=== PATIENT | female | born 1940 | race Caucasian/White ===

== ENCOUNTER → 2017-10-27 | Emergency (ER) | payer MEDICARE, MEDICAID ==
[~2017-10-27] VITALS: Ht 165.1 cm; Wt 106.8 kg
[~2017-10-27] MED LIST: ASPI-612 PO; ATOR20TA PO; FENO48TA15 PO; FURO-150 PO; GABA-338 PO; HYDR1TAB PO; LISI40TA4 PO; LOP25T PO; METF500T PO; SITA100T15 PO
[2017-10-27 14:41] VITALS: BP 143/75
== END | disposition home or self-care (01) ==
LOC: ER 14:28
DX: M25.561 Pain in right knee (principal); I25.10 Atherosclerotic heart disease of native coronary artery without angina pectoris; I10 Essential (primary) hypertension; J44.9 Chronic obstructive pulmonary disease, unspecified; I25.2 Old myocardial infarction; E11.9 Type 2 diabetes mellitus without complications; Z90.49 Acquired absence of other specified parts of digestive tract; Z88.5 Allergy status to narcotic agent; Z79.82 Long term (current) use of aspirin; Z79.84 Long term (current) use of oral hypoglycemic drugs; Z79.899 Other long term (current) drug therapy
CPT/HCPCS: 29505; 99283

== ENCOUNTER 2018-06-12 09:31 | Outpatient (CLI) | payer MEDICARE, MEDICAID | END 2018-06-12 23:59 | disposition home or self-care (01) | LOC: VAS 09:31 | PROVIDERS: ATTEND Family Medicine | DX: R60.0 Localized edema (principal); I10 Essential (primary) hypertension; E11.9 Type 2 diabetes mellitus without complications; I25.2 Old myocardial infarction; J44.9 Chronic obstructive pulmonary disease, unspecified; Z79.82 Long term (current) use of aspirin; Z87.891 Personal history of nicotine dependence; Z86.718 Personal history of other venous thrombosis and embolism | CPT/HCPCS: 93971 ==

== ENCOUNTER 2018-06-28 16:39 | Emergency (ER) | payer MEDICARE, MEDICAID ==
[~2018-06-28] VITALS: Ht 165.1 cm; Wt 107.0 kg
[2018-06-28] MEDS ORDERED: LIDOcaine 1.5% w/epinephrine 1:200,000 5ml ampul IJ ONE (17:00)
[2018-06-28 17:36] VITALS: BP 125/65
== END 2018-06-28 17:35 | disposition home or self-care (01) ==
LOC: ER 16:39
DX: S01.20XA Unspecified open wound of nose, initial encounter (principal); I25.10 Atherosclerotic heart disease of native coronary artery without angina pectoris; I10 Essential (primary) hypertension; I25.2 Old myocardial infarction; J44.9 Chronic obstructive pulmonary disease, unspecified; E11.9 Type 2 diabetes mellitus without complications; Z90.49 Acquired absence of other specified parts of digestive tract; Z87.891 Personal history of nicotine dependence; Z88.5 Allergy status to narcotic agent; Z79.82 Long term (current) use of aspirin; Z79.899 Other long term (current) drug therapy; X58.XXXA Exposure to other specified factors, initial encounter; Y93.89 Activity, other specified; Y92.89 Other specified places as the place of occurrence of the external cause; Y99.9 Unspecified external cause status
CPT/HCPCS: 12011; 99284; J3490

== ENCOUNTER 2019-06-30 11:06 | Inpatient (IN) | payer MEDICARE, MEDICAID ==
[~2019-06-30] VITALS: Ht 165.1 cm; Wt 125.0 kg
--- NOTE | 2019-06-30 11:33 | NUR ---
Markell arellano in EDM - 06/30/19 at 1135 by LUPE PATIENT AMBULATORY TO ER #11 WITH C/O LEFT WRIST PAIN AFTER FALLING ON WALKING PATH TODAY. PAIN AROUND ENTIRE WRIST BUT GOOD MOVEMENT AND SENSATION TO FINGERS.
[2019-06-30] MEDS ORDERED: normal saline 1000ML IV soln IVB ONE ×2 (12:10→13:20)
[2019-06-30 12:24] LABS: BASOPHILS % (AUTO) 0.3 % (0-1); EOSINOPHILS % (AUTO) 0.4 % (0-6); HEMATOCRIT 38.2 % (35.0-45.0); HEMOGLOBIN 12.3 g/dl (12.0-16.0); LYMPHOCYTES # (AUTO) 0.6 X10'3 (1.1-4.8); LYMPHOCYTES % (AUTO) 6.4 % (21-51); MEAN CORPUSCULAR HEMOGLOBIN 27.3 PG (27.0-31.0); MEAN CORPUSCULAR HGB CONC 32.1 g/dL (33.0-36.5); MEAN CORPUSCULAR VOLUME 85.1 FL (78-98); MEAN PLATELET VOLUME 8.7 FL (7.4-10.4); MONOCYTES # (AUTO) 0.8 X10'3 (0-0.9); MONOCYTES % (AUTO) 8.4 % (2-12); NEUTROPHILS # (AUTO) 7.7 X10'3 (1.8-7.7); NEUTROPHILS % (AUTO) 84.5 % (42-75); PLATELET COUNT 144 X10'3 (140-440); RED BLOOD COUNT 4.49 X10'6 (4.20-5.60); RED CELL DISTRIBUTION WIDTH 22.1 % (11.5-14.5); WHITE BLOOD COUNT 9.1 X10'3 (4.5-11.0)
[2019-06-30 12:36] LABS: ALANINE AMINOTRANSFERASE 20 U/L (12-78); ALBUMIN 3.1 G/DL (3.4-5.0); ALBUMIN/GLOBULIN RATIO 0.6 (1.1-1.5); ALKALINE PHOSPHATASE 67 IU/L (46-116); ANION GAP 11 (8-16); ASPARTATE AMINO TRANSFERASE 23 U/L (10-37); BILIRUBIN,TOTAL 0.9 MG/DL (0.1-1.0); BLOOD UREA NITROGEN 37 MG/DL (7-18); BUN/CREATININE RATIO 19.2 (6.6-38.0); CALCIUM 8.7 MG/DL (8.5-10.1); CHLORIDE 99 MMOL/L (99-107); CREATININE 1.93 MG/DL (0.40-0.90); GLUCOSE 301 MG/DL (70-104); LIPASE 114 U/L (73-393); POTASSIUM 3.7 MMOL/L (3.5-5.1); SODIUM 138 MMOL/L (135-145); TOTAL CARBON DIOXIDE 28.5 MMOL/L (24-32); TOTAL PROTEIN 8.1 G/DL (6.4-8.2); eGFR 25 ML/MIN
[2019-06-30 12:50] LABS: CLARITY,URINE SLIGHTLY CLOUDY (Clear); GLUCOSE, URINE NEGATIVE (Neg); KETONES,URINE TRACE mg/dl (Neg); LEUKOCYTE ESTERASE ,URINE NEGATIVE (Neg); NITRITES, URINE NEGATIVE (Neg); OCCULT BLOOD,URINE NEGATIVE (Neg); PH,URINE 5.5 (4.8-8.0); PROTEIN,URINE 100 mg/dl (Neg)
[2019-06-30 12:53] LABS: COLOR,URINE DARK YELLOW (Yellow); UA COLLECTION TYPE STRAIGHT CATH
[2019-06-30 12:56] LABS: SQUAMOUS EPITHELIAL CELL,UR FEW /LPF (FEW)
[2019-06-30 12:58] LABS: BACTERIA,URINE FEW /HPF (Neg); RBC,URINE 0-2 /HPF (0-2); WBC,URINE 0-4 /HPF (0-4)
[2019-06-30 13:07] LABS: AMORPHOUS URATES 1+
[2019-06-30 13:08] LABS: TRANSITIONAL EPI CELLS,URINE FEW /HPF
--- NOTE | 2019-06-30 14:12 | NUR ---
[facility]EL [facility]GO INITIATED FOR TRANSPORT. ETA 1600
--- NOTE | 2019-06-30 14:59 | NUR ---
pt failed gait test. pt unable to stand with 2 person assit
--- NOTE | 2019-06-30 15:11 | NUR ---
[facility]GO HAS BEEN CANCELLED. HOSPITALIST HAS BEEN PAGED
--- NOTE | 2019-06-30 15:12 | NUR ---
case management called regarding dc
[2019-06-30] MEDS ORDERED: acetaminophen 325mg tablet PO PRN ×2 (15:40)
[2019-06-30] MEDS ORDERED: diphenhydrAMINE 25mg capsule PO PRN (15:40)
[2019-06-30] MEDS ORDERED: magnesium 4gm in 100ml NS 100 ML IV PRN (15:40)
[2019-06-30] MEDS ORDERED: mag hydrox/Alum hydrox/simeth 30ml oral suspension PO PRN (15:40)
[2019-06-30] MEDS: K and/or MAG REPLACEMENT MC SCH (15:40)
[2019-06-30] MEDS ORDERED: potassium Cl 20 mEq SR tablet PO PRN (15:40)
[2019-06-30] MEDS ORDERED: magnesium 2GM in 50ml NS 50 ML IV PRN (15:40)
[2019-06-30] MEDS ORDERED: morphine 2 MG/ML inj. syringe IV PRN ×2 (15:40)
[2019-06-30] MEDS ORDERED: HYDROcodone/acetaminophen 10/325mg tab PO PRN (15:40)
[2019-06-30] MEDS ORDERED: MESSAGE TO PHARMACY PO ONE (15:40)
[2019-06-30] MEDS ORDERED: dextrose ORAL solution 15 GM/59 ML bottle PO PRN ×2 (15:40)
[2019-06-30] MEDS ORDERED: dextrose 50%-water 50ml dispensing syringe IV PRN ×2 (15:40)
[2019-06-30] MEDS ORDERED: ondansetron/PF 4mg/2ml inj IV PRN (15:40)
[2019-06-30] MEDS ORDERED: HYDROcodone/acetaminophen 5mg/325mg tablet PO PRN (15:40)
[2019-06-30] MEDS ORDERED: potassium CL 10mEq/100ml bag 100 ML IV PRN ×2 (15:40)
[2019-06-30] MEDS ORDERED: glucagon, human recombinant 1mg kit SUBCUT PRN (15:40)
[2019-06-30] MEDS ORDERED: magnesium hydroxide 30ml (MOM) UD suspension PO PRN (15:40)
[2019-06-30] MEDS ORDERED: magnesium Cl slow-release 64mg tablet PO PRN (15:40)
[2019-06-30] MEDS ORDERED: PREG50CA PO (16:21)
[2019-06-30] MEDS ORDERED: FENO160T5 PO (16:21)
[2019-06-30] MEDS ORDERED: NAPR-56 PO (16:21)
[2019-06-30] MEDS ORDERED: ALBU18HF2 INH (16:21)
[2019-06-30] MEDS ORDERED: GLIP5TAB26 PO (16:21)
[2019-06-30 16:24] LABS: ANISOCYTOSIS 3+; PLATELET ESTIMATE NORMAL
[2019-06-30 16:25] LABS: POLYCHROMASIA FEW
[2019-06-30] MEDS ORDERED: LOSA1TAB39 PO (16:26)
[2019-06-30] MEDS: normal saline 1000ml 1,000 ML IV SCH (16:45)
[2019-06-30 18:45] LABS: COLOR,URINE YELLOW (Yellow); GLUCOSE, URINE 100 mg/dl (Neg); KETONES,URINE NEGATIVE (Neg); LEUKOCYTE ESTERASE ,URINE TRACE (Neg); NITRITES, URINE NEGATIVE (Neg); OCCULT BLOOD,URINE SMALL (Neg); PH,URINE 5.5 (4.8-8.0); PROTEIN,URINE TRACE mg/dl (Neg)
[2019-06-30 18:48] LABS: CLARITY,URINE SLIGHTLY CLOUDY (Clear); UA COLLECTION TYPE OTHER
[2019-06-30 18:58] LABS: RBC,URINE 0-2 /HPF (0-2)
[2019-06-30 18:59] LABS: BACTERIA,URINE FEW /HPF (Neg); HYALINE CASTS 0-3 /LPF (NEGATIVE); SQUAMOUS EPITHELIAL CELL,UR FEW /LPF (FEW)
[2019-06-30] MEDS ORDERED: methylPREDNISolone sod succ 125mg/2ml vial IV ONE (19:40)
[2019-06-30] MEDS: methylPREDNISolone sod succ 125mg/2ml vial IV SCH (20:00)
[2019-06-30] MEDS: heparin, porcine 5000 units/ml vial SQ SCH (20:42)
[2019-06-30] MEDS: atorvastatin 20mg tablet PO SCH (20:42)
[2019-06-30] MEDS ORDERED: temazepam 15mg capsule PO PRN (21:00)
--- NOTE | 2019-06-30 21:05 | NUR ---
2-person assist for pericare; soft stool. pt does not appear to recognize when/if she has urinated.
--- NOTE | 2019-06-30 21:20 | NUR ---
Rec'd report from JACINTO Moser in the ER.
--- NOTE | 2019-06-30 21:35 | NUR ---
Patient arrived from ER on [facility] and was transferred to hospital bed with slide board. She is not very mobile and complains of leg pain when moved. She is A&O x3, very hard of hearing. I will continue to monitor.
[2019-06-30 21:50] VITALS: BP 161/60
[2019-06-30] MEDS: aspirin 81mg tablet.DR PO SCH (22:01)
[2019-06-30] MEDS: pregabalin 25mg capsule PO SCH (22:02)
[2019-06-30] MEDS: insulin glargine (Lantus) pen - multi-dose SQ SCH (22:14)
[2019-06-30] MEDS: ipratropium/albuterol 3ml nebule NEB SCH (23:31)
[2019-07-01] MEDS: normal saline 1000ml 1,000 ML IV SCH ×3 (01:38→12:41)
[2019-07-01] MEDS: methylPREDNISolone sod succ 125mg/2ml vial IV SCH ×4 (02:06→20:32)
[2019-07-01] MEDS: ipratropium/albuterol 3ml nebule NEB SCH ×5 (02:43→23:31)
[2019-07-01 06:00] VITALS: BP 154/49
[2019-07-01 06:16] LABS: BASOPHILS % (AUTO) 0.1 % (0-1); EOSINOPHILS % (AUTO) 0.1 % (0-6); HEMATOCRIT 35.7 % (35.0-45.0); HEMOGLOBIN 11.5 g/dl (12.0-16.0); LYMPHOCYTES # (AUTO) 0.2 X10'3 (1.1-4.8); LYMPHOCYTES % (AUTO) 3.6 % (21-51); MEAN CORPUSCULAR HEMOGLOBIN 27.6 PG (27.0-31.0); MEAN CORPUSCULAR HGB CONC 32.3 g/dL (33.0-36.5); MEAN CORPUSCULAR VOLUME 85.4 FL (78-98); MONOCYTES # (AUTO) 0.1 X10'3 (0-0.9); MONOCYTES % (AUTO) 2.2 % (2-12); NEUTROPHILS # (AUTO) 5.7 X10'3 (1.8-7.7); PLATELET COUNT 115 X10'3 (140-440); RED BLOOD COUNT 4.18 X10'6 (4.20-5.60); RED CELL DISTRIBUTION WIDTH 22.1 % (11.5-14.5)
--- NOTE | 2019-07-01 06:29 | NUR ---
Problems reprioritized. Patient report given, questions answered & plan of care reviewed with JACINTO Romo.
[2019-07-01 06:30] LABS: ALANINE AMINOTRANSFERASE 21 U/L (12-78); ALBUMIN 2.6 G/DL (3.4-5.0); ALBUMIN/GLOBULIN RATIO 0.5 (1.1-1.5); ALKALINE PHOSPHATASE 62 IU/L (46-116); ANION GAP 12 (8-16); ASPARTATE AMINO TRANSFERASE 19 U/L (10-37); BILIRUBIN,TOTAL 0.6 MG/DL (0.1-1.0); BLOOD UREA NITROGEN 33 MG/DL (7-18); BUN/CREATININE RATIO 25.2 (6.6-38.0); CALCIUM 8.7 MG/DL (8.5-10.1); CHLORIDE 103 MMOL/L (99-107); CREATININE 1.31 MG/DL (0.40-0.90); GLUCOSE 287 MG/DL (70-104); MAGNESIUM 1.7 MG/DL (1.5-2.4); PHOSPHORUS 2.9 MG/DL (2.3-4.5); POTASSIUM 3.3 MMOL/L (3.5-5.1); SODIUM 142 MMOL/L (135-145); TOTAL CARBON DIOXIDE 26.8 MMOL/L (24-32); TOTAL PROTEIN 7.6 G/DL (6.4-8.2); eGFR 39 ML/MIN
[2019-07-01] MEDS: K and/or MAG REPLACEMENT MC SCH (08:00)
[2019-07-01] MEDS: insulin Lispro (HumaLOG) vial - multi-dose SQ SCH ×4 (08:56→20:47)
[2019-07-01 09:00] VITALS: BP 149/60
[2019-07-01] MEDS: losartan 50mg tablet PO SCH (09:00)
[2019-07-01] MEDS: HYDROchlorothiazide 25mg tablet PO SCH (09:00)
[2019-07-01] MEDS: furosemide 20MG tablet PO SCH (09:00)
[2019-07-01 09:01] LABS: PLATELET ESTIMATE DECREASED
[2019-07-01] MEDS: pregabalin 25mg capsule PO SCH ×3 (09:01→20:34)
[2019-07-01 09:02] LABS: ANISOCYTOSIS 3+; ELLIPTOCYTES 1+; POLYCHROMASIA FEW; SCHISTOCYTES FEW
[2019-07-01] MEDS: potassium Cl 20 mEq SR tablet PO PRN ×3 (09:02→18:51)
[2019-07-01] MEDS: fenofibrate 145mg tablet PO SCH (09:02)
[2019-07-01] MEDS: heparin, porcine 5000 units/ml vial SQ SCH ×2 (09:06→20:33)
[2019-07-01 10:00] VITALS: BP 132/51
[2019-07-01] MEDS ORDERED: FLU VACC QS2019-20(6MOS UP)/PF 60 MCG/0.5 ML SYRINGE IMVAC ONE (10:00)
--- NOTE | 2019-07-01 11:31 | NUR ---
Student documentation: I have reviewed all interventions, assessments performed and [facility] Student Medication Administration: For this medication-pass time frame, all medication were reviewed, dispensed, administered and documented per hospital policy [facility].
--- NOTE | 2019-07-01 12:31 | NUR ---
PRESSURE ULCER EDUCATION: DEFINITION: A pressure ulcer is an area of skin that breaks down when you stay in one position too long. The constant pressure against the skin reduces the blood flow to that area and the affected tissue dies. CAUSES: "Being bedridden or in a wheelchair "Fragile skin "Having a chronic condition, such as diabetes or vascular disease "Inability to move certain parts of your body without assistance "Older age "Incontinence of urine or stool SYMPTOMS: "A reddened area that DOES NOT turn white when pressed on - this can be the beginning of a pressure ulcer "A blister, deep sore or a crater - these can be advanced pressure ulcers FIRST AID: "Relieve the pressure on this area "Keep the area clean and dry "Call your primary doctor if you see any of the above symptoms "DO NOT massage the area "DO NOT use a donut shaped or ring shaped pillow- these actually interfere with the blood flow and cause complications PREVENTION: "Check for pressure ulcers everyday "Change position at least every two hours to relieve pressure "Use items that help relieve pressure- pillows, sheepskin, foam padding, and powders. "Keep skin clean and dry "Eat healthy well balanced meals "Exercise daily IF YOU SEE ANY OF THESE SYMPTOMS WHILE IN THE HOSPITAL - TELL YOUR NURSE IMMEDIATELY. IF YOU SEE ANY OF THESE SYMPTOMS WHILE AT HOME OR HAVE ANY QUESTIONS OR CONCERNS ABOUT PRESSURE ULCERS - CALL YOUR PRIMARY DOCTOR IMMEDIATELY. Addendum: 07/01/19 at 1232 by Ingris Mccabe RN Amended: Links added.
--- NOTE | 2019-07-01 16:24 | NUR ---
Retrieved Flu vaccine from pharmacy for pt. Vaccine was due at 10:00. Vaccine did not scan, indicated "med not on patient's profile". Called pharmacy, spoke with wet process technician who advised it was scanning on their end and there was nothing they could do. Pharmacy stated to try another scanner. I advised pharmacy it was not a scanner issue but a labeling issue. Pharmacy explained I could talk to my director/charge but they (pharmacy) couldn't do anything about it. Spoke with charge. Administered flu vaccine after explaining pharmacy issue.
[2019-07-01 18:00] VITALS: BP 153/48
--- NOTE | 2019-07-01 18:19 | NUR ---
Problems reprioritized. Patient report given, questions answered & plan of care reviewed with
--- NOTE | 2019-07-01 18:29 | NUR ---
Patient in room ORTHO 4022. I have received report from JACINTO MCBRIDE and had the opportunity to ask questions and assume patient care.
[2019-07-01] MEDS: aspirin 81mg tablet.DR PO SCH (20:32)
[2019-07-01] MEDS: atorvastatin 20mg tablet PO SCH (20:33)
[2019-07-01] MEDS: insulin glargine (Lantus) pen - multi-dose SQ SCH (20:48)
[2019-07-01 22:00] VITALS: BP 106/46
[2019-07-02] MEDS: methylPREDNISolone sod succ 125mg/2ml vial IV SCH ×4 (01:19→19:51)
[2019-07-02] MEDS: ipratropium/albuterol 3ml nebule NEB SCH ×6 (03:00→23:29)
[2019-07-02 05:57] LABS: BASOPHILS % (AUTO) 0.1 % (0-1); EOSINOPHILS % (AUTO) 0 % (0-6); HEMATOCRIT 33.1 % (35.0-45.0); HEMOGLOBIN 10.9 g/dl (12.0-16.0); LYMPHOCYTES # (AUTO) 0.2 X10'3 (1.1-4.8); LYMPHOCYTES % (AUTO) 3.7 % (21-51); MEAN CORPUSCULAR HEMOGLOBIN 27.5 PG (27.0-31.0); MEAN CORPUSCULAR HGB CONC 32.8 g/dL (33.0-36.5); MEAN CORPUSCULAR VOLUME 83.9 FL (78-98); MONOCYTES # (AUTO) 0.2 X10'3 (0-0.9); NEUTROPHILS % (AUTO) 93.2 % (42-75); PLATELET COUNT 135 X10'3 (140-440); RED BLOOD COUNT 3.95 X10'6 (4.20-5.60); RED CELL DISTRIBUTION WIDTH 21.8 % (11.5-14.5); WHITE BLOOD COUNT 6.4 X10'3 (4.5-11.0)
[2019-07-02 06:00] VITALS: BP 149/63
[2019-07-02 06:04] LABS: ALANINE AMINOTRANSFERASE 30 U/L (12-78); ALBUMIN 2.4 G/DL (3.4-5.0); ALBUMIN/GLOBULIN RATIO 0.5 (1.1-1.5); ALKALINE PHOSPHATASE 63 IU/L (46-116); ANION GAP 6 (8-16); ASPARTATE AMINO TRANSFERASE 34 U/L (10-37); BILIRUBIN,TOTAL 0.4 MG/DL (0.1-1.0); BLOOD UREA NITROGEN 38 MG/DL (7-18); BUN/CREATININE RATIO 31.9 (6.6-38.0); CALCIUM 8.8 MG/DL (8.5-10.1); CHLORIDE 104 MMOL/L (99-107); CREATININE 1.19 MG/DL (0.40-0.90); GLUCOSE 261 MG/DL (70-104); MAGNESIUM 1.8 MG/DL (1.5-2.4); PHOSPHORUS 2.5 MG/DL (2.3-4.5); POTASSIUM 3.5 MMOL/L (3.5-5.1); SODIUM 140 MMOL/L (135-145); TOTAL CARBON DIOXIDE 29.8 MMOL/L (24-32); TOTAL PROTEIN 7.1 G/DL (6.4-8.2); eGFR 44 ML/MIN
--- NOTE | 2019-07-02 06:15 | NUR ---
Patient in room ORTHO 4022. I have received report from Bonnie and had the opportunity to ask questions and assume patient care.
--- NOTE | 2019-07-02 06:21 | NUR ---
Problems reprioritized. Patient report given, questions answered & plan of care reviewed with JACINTO MCBRIDE.
[2019-07-02 07:46] LABS: ANISOCYTOSIS 3+; ELLIPTOCYTES 1+; PLATELET ESTIMATE DECREASED; TEAR DROP CELLS FEW
[2019-07-02 07:47] LABS: POLYCHROMASIA FEW
[2019-07-02] MEDS: K and/or MAG REPLACEMENT MC SCH (08:00)
[2019-07-02] MEDS: insulin Lispro (HumaLOG) vial - multi-dose SQ SCH ×4 (08:26→21:05)
[2019-07-02] MEDS: heparin, porcine 5000 units/ml vial SQ SCH ×2 (08:31→19:51)
[2019-07-02] MEDS: losartan 50mg tablet PO SCH (08:36)
[2019-07-02] MEDS: furosemide 20MG tablet PO SCH (08:36)
[2019-07-02] MEDS: HYDROchlorothiazide 25mg tablet PO SCH (08:36)
[2019-07-02] MEDS: pregabalin 25mg capsule PO SCH ×3 (08:37→20:58)
[2019-07-02] MEDS: fenofibrate 145mg tablet PO SCH (08:37)
--- NOTE | 2019-07-02 09:40 | NUR ---
Problems reprioritized. Patient report given, questions answered & plan of care reviewed with Deyanira Schwarz
--- NOTE | 2019-07-02 09:45 | NUR ---
Patient in room ORTHO 4022. I have received report from JACINTO Saravia and had the opportunity to ask questions and assume patient care.
[2019-07-02 10:10] VITALS: BP 134/60
--- NOTE | 2019-07-02 10:58 | NUR ---
Student documentation: I have reviewed all interventions, assessments performed and [facility] Student Medication Administration: For this medication-pass time frame, all medication were reviewed, dispensed, administered and documented per hospital policy [facility].
[2019-07-02 18:00] VITALS: BP 142/55
--- NOTE | 2019-07-02 18:00 | NUR ---
Received report from Deyanira CASEY. assumed care of patient
[2019-07-02] MEDS: CefTRIAXone/D5W-Rocephin 1gm 50 ML IV SCH (19:51)
[2019-07-02] MEDS: atorvastatin 20mg tablet PO SCH (20:58)
[2019-07-02] MEDS: aspirin 81mg tablet.DR PO SCH (20:58)
[2019-07-02] MEDS: insulin glargine (Lantus) pen - multi-dose SQ SCH (21:04)
[2019-07-02 22:00] VITALS: BP 159/58
[2019-07-03] MEDS: methylPREDNISolone sod succ 125mg/2ml vial IV SCH ×3 (02:13→13:20)
[2019-07-03] MEDS: ipratropium/albuterol 3ml nebule NEB SCH ×4 (03:00→15:00)
[2019-07-03 06:00] VITALS: BP 170/73
[2019-07-03 06:17] LABS: BASOPHILS % (AUTO) 0.1 % (0-1); EOSINOPHILS % (AUTO) 0 % (0-6); HEMATOCRIT 34.2 % (35.0-45.0); HEMOGLOBIN 11.1 g/dl (12.0-16.0); LYMPHOCYTES # (AUTO) 0.2 X10'3 (1.1-4.8); LYMPHOCYTES % (AUTO) 2.9 % (21-51); MEAN CORPUSCULAR HEMOGLOBIN 27.3 PG (27.0-31.0); MEAN CORPUSCULAR HGB CONC 32.4 g/dL (33.0-36.5); MEAN CORPUSCULAR VOLUME 84.2 FL (78-98); MEAN PLATELET VOLUME 9.2 FL (7.4-10.4); MONOCYTES # (AUTO) 0.3 X10'3 (0-0.9); NEUTROPHILS # (AUTO) 4.7 X10'3 (1.8-7.7); PLATELET COUNT 140 X10'3 (140-440); RED BLOOD COUNT 4.06 X10'6 (4.20-5.60); RED CELL DISTRIBUTION WIDTH 22.1 % (11.5-14.5); WHITE BLOOD COUNT 5.2 X10'3 (4.5-11.0)
--- NOTE | 2019-07-03 06:21 | NUR ---
Gave report to Leola CASEY
[2019-07-03 06:26] LABS: ALANINE AMINOTRANSFERASE 45 U/L (12-78); ALBUMIN 2.4 G/DL (3.4-5.0); ALBUMIN/GLOBULIN RATIO 0.5 (1.1-1.5); ALKALINE PHOSPHATASE 62 IU/L (46-116); ANION GAP 7 (8-16); ASPARTATE AMINO TRANSFERASE 36 U/L (10-37); BILIRUBIN,TOTAL 0.3 MG/DL (0.1-1.0); BLOOD UREA NITROGEN 47 MG/DL (7-18); BUN/CREATININE RATIO 36.4 (6.6-38.0); CALCIUM 8.9 MG/DL (8.5-10.1); CHLORIDE 103 MMOL/L (99-107); CHOL/HDL RATIO 4.4 (0.00-4.99); CHOLESTEROL 101 MG/DL (0-200); CREATININE 1.29 MG/DL (0.40-0.90); GLUCOSE 217 MG/DL (70-104); HDL CHOLESTEROL 23 MG/DL (35-60); LDL CHOLESTEROL 54 MG/DL (50-100); MAGNESIUM 1.8 MG/DL (1.5-2.4); PHOSPHORUS 3.4 MG/DL (2.3-4.5); POTASSIUM 3.4 MMOL/L (3.5-5.1); SODIUM 142 MMOL/L (135-145); TOTAL CARBON DIOXIDE 32.1 MMOL/L (24-32); TRIGLYCERIDES 172 MG/DL (20-135); eGFR 40 ML/MIN
[2019-07-03 06:41] LABS: ANISOCYTOSIS 3+; MICROCYTOSIS 1+; PLATELET ESTIMATE DECREASED
[2019-07-03 06:42] LABS: POIKILOCYTOSIS 1+
--- NOTE | 2019-07-03 07:03 | NUR ---
Patient in room ORTHO 4022. I have received report from [facility] and had the opportunity to ask questions and assume patient care.
[2019-07-03] MEDS: K and/or MAG REPLACEMENT MC SCH (08:00)
[2019-07-03] MEDS: CefTRIAXone/D5W-Rocephin 1gm 50 ML IV SCH (08:38)
[2019-07-03] MEDS: potassium Cl 20 mEq SR tablet PO PRN (08:39)
[2019-07-03] MEDS: HYDROchlorothiazide 25mg tablet PO SCH (08:40)
[2019-07-03] MEDS: pregabalin 25mg capsule PO SCH ×2 (08:40→13:20)
[2019-07-03] MEDS: losartan 50mg tablet PO SCH (08:41)
[2019-07-03] MEDS: heparin, porcine 5000 units/ml vial SQ SCH (08:42)
[2019-07-03] MEDS: furosemide 20MG tablet PO SCH (08:42)
[2019-07-03] MEDS: fenofibrate 145mg tablet PO SCH (08:42)
[2019-07-03] MEDS: insulin Lispro (HumaLOG) vial - multi-dose SQ SCH ×2 (09:17→13:24)
[2019-07-03 10:20] VITALS: BP 165/76
--- NOTE | 2019-07-03 15:49 | NUR ---
called report to Annelise at [facility]. 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 Sonja Moya made aware.
--- NOTE | 2019-07-03 16:21 | NUR ---
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 All belongings sent with pt. Discharged to [facility].
== END 2019-07-03 16:36 | DRG 682 ==
LOC: ER 11:07 → ED HOLD 15:38 → ORTHO 4S 21:33
PROVIDERS: ADMIT Family Medicine; ATTEND Family Medicine
DX: N17.9 Acute kidney failure, unspecified (principal); I50.33 Acute on chronic diastolic (congestive) heart failure; N39.0 Urinary tract infection, site not specified; J44.1 Chronic obstructive pulmonary disease with (acute) exacerbation; J44.0 Chronic obstructive pulmonary disease with (acute) lower respiratory infection; E86.0 Dehydration; J20.9 Acute bronchitis, unspecified; M54.5 Low back pain; B96.20 Unspecified Escherichia coli [E. coli] as the cause of diseases classified elsewhere; I11.0 Hypertensive heart disease with heart failure; E11.40 Type 2 diabetes mellitus with diabetic neuropathy, unspecified; E78.1 Pure hyperglyceridemia; Z60.2 Problems related to living alone; E78.5 Hyperlipidemia, unspecified; G89.29 Other chronic pain; I25.10 Atherosclerotic heart disease of native coronary artery without angina pectoris; M47.9 Spondylosis, unspecified; Z66 Do not resuscitate; Z82.0 Family history of epilepsy and other diseases of the nervous system; Z87.891 Personal history of nicotine dependence; I25.2 Old myocardial infarction; Z99.81 Dependence on supplemental oxygen; Z23 Encounter for immunization; Z88.5 Allergy status to narcotic agent; Z90.49 Acquired absence of other specified parts of digestive tract; Z81.1 Family history of alcohol abuse and dependence
CPT/HCPCS: 36415; 71045; 72131; 73502; 80053; 80061; 81001; 82948; 83036; 83690; 83735; 84100; 85025; 87077; 87081; 87088; 87186; 93306; 94640; 94760; 96360; 96361; 97110; 97116; 97161; 97530; 99285; G0378; J0696; J1644; J1815; J2405; J2930; J7030

== ENCOUNTER 2019-08-22 18:47 | Inpatient (IN) | payer MEDICARE, MEDICAID ==
[~2019-08-22] VITALS: Ht 170.2 cm; Wt 106.8 kg
[~2019-08-22 18:47] MED LIST changes: +ALBU18HF2 INH; +FENO160T5 PO; -FENO48TA15 PO; -GABA-338 PO; +GLIP5TAB26 PO; -HYDR1TAB PO; -LISI40TA4 PO; -LOP25T PO; +LOSA1TAB39 PO; +NAPR-56 PO; +PREG50CA PO; -SITA100T15 PO
[2019-08-22] MEDS ORDERED: ESCI20TA38 PO (19:22)
[2019-08-22] MEDS ORDERED: DULO60CA65 PO (19:22)
[2019-08-22 21:13] LABS: BASOPHILS % (AUTO) 0.4 % (0-1); EOSINOPHILS # (AUTO) 0.4 X10'3 (0-0.9); EOSINOPHILS % (AUTO) 6.3 % (0-6); HEMATOCRIT 31.4 % (35.0-45.0); HEMOGLOBIN 10.3 g/dl (12.0-16.0); LYMPHOCYTES # (AUTO) 0.8 X10'3 (1.1-4.8); LYMPHOCYTES % (AUTO) 13.6 % (21-51); MEAN CORPUSCULAR HEMOGLOBIN 29.3 PG (27.0-31.0); MEAN CORPUSCULAR HGB CONC 32.8 g/dL (33.0-36.5); MEAN CORPUSCULAR VOLUME 89.5 FL (78-98); MEAN PLATELET VOLUME 8.7 FL (7.4-10.4); MONOCYTES # (AUTO) 0.6 X10'3 (0-0.9); MONOCYTES % (AUTO) 9.4 % (2-12); NEUTROPHILS # (AUTO) 4.2 X10'3 (1.8-7.7); NEUTROPHILS % (AUTO) 70.3 % (42-75); PLATELET COUNT 183 X10'3 (140-440); RED BLOOD COUNT 3.51 X10'6 (4.20-5.60); RED CELL DISTRIBUTION WIDTH 20.4 % (11.5-14.5)
[2019-08-22 21:21] LABS: PARTIAL THROMBOPLASTIN TIME 26 SECONDS (22-32)
[2019-08-22 21:25] LABS: ALANINE AMINOTRANSFERASE 86 U/L (12-78); ALBUMIN 3.2 G/DL (3.4-5.0); ALBUMIN/GLOBULIN RATIO 0.8 (1.1-1.5); ALKALINE PHOSPHATASE 64 IU/L (46-116); ANION GAP 11 (8-16); ASPARTATE AMINO TRANSFERASE 170 U/L (10-37); BLOOD UREA NITROGEN 73 MG/DL (7-18); CALCIUM 9.2 MG/DL (8.5-10.1); CHLORIDE 100 MMOL/L (99-107); CREATININE 4.55 MG/DL (0.40-0.90); GLUCOSE 157 MG/DL (70-104); POTASSIUM 5.4 MMOL/L (3.5-5.1); SODIUM 140 MMOL/L (135-145); eGFR 9 ML/MIN
[2019-08-22 21:39] LABS: CLARITY,URINE CLOUDY (Clear); COLOR,URINE YELLOW (Yellow); GLUCOSE, URINE NEGATIVE (Neg); KETONES,URINE NEGATIVE (Neg); LEUKOCYTE ESTERASE ,URINE MODERATE (Neg); NITRITES, URINE NEGATIVE (Neg); OCCULT BLOOD,URINE LARGE (Neg); PH,URINE 5.5 (4.8-8.0); PROTEIN,URINE 100 mg/dl (Neg); UROBILINOGEN,URINE 0.2 E.U/dL (0.2-1.0)
[2019-08-22 21:44] LABS: UA COLLECTION TYPE FOLEY CATH
[2019-08-22 21:45] LABS: BACTERIA,URINE 1+ /HPF (Neg); SQUAMOUS EPITHELIAL CELL,UR FEW /LPF (FEW); WBC CLUMPS,URINE MODERATE /HPF (NEGATIVE); WBC,URINE TNTC /HPF (0-4)
[2019-08-22] MEDS ORDERED: normal saline 1000ML IV soln IVB ONE (21:45)
[2019-08-22] MEDS ORDERED: magnesium Cl slow-release 64mg tablet PO PRN (22:05)
[2019-08-22] MEDS ORDERED: dextrose 50%-water 50ml dispensing syringe IV ONE (22:05)
[2019-08-22] MEDS ORDERED: insulin regular, human 10 units/0.1 ml syringe IV ONE (22:05)
[2019-08-22] MEDS ORDERED: magnesium hydroxide 30ml (MOM) UD suspension PO PRN (22:05)
[2019-08-22] MEDS ORDERED: magnesium 4gm in 100ml NS 100 ML IV PRN (22:05)
[2019-08-22] MEDS ORDERED: mag hydrox/Alum hydrox/simeth 30ml oral suspension PO PRN (22:05)
[2019-08-22] MEDS ORDERED: potassium Cl 20 mEq SR tablet PO PRN ×2 (22:05)
[2019-08-22] MEDS ORDERED: potassium CL 10mEq/100ml bag 100 ML IV PRN ×2 (22:05)
[2019-08-22] MEDS ORDERED: magnesium 2GM in 50ml NS 50 ML IV PRN (22:05)
[2019-08-22] MEDS ORDERED: acetaminophen 325mg tablet PO PRN ×2 (22:05)
[2019-08-22] MEDS ORDERED: ondansetron/PF 4mg/2ml inj IV PRN (22:05)
--- NOTE | 2019-08-22 23:09 | NUR ---
Patient in room ED 2. I have received report from JACINTO Contreras and had the opportunity to ask questions and assume patient care.
[2019-08-22] MEDS: HYDROcodone/acetaminophen 10/325mg tab PO PRN (23:11)
[2019-08-22 23:15] VITALS: BP 157/68
[2019-08-22] MEDS: normal saline 1000ml 1,000 ML IV SCH (23:48)
[2019-08-23] MEDS: CefTRIAXone 2gm/D5W 50ml 50 ML IV SCH ×2 (00:29→07:38)
[2019-08-23] MEDS ORDERED: glucagon, human recombinant 1mg kit SUBCUT PRN (02:10)
[2019-08-23] MEDS ORDERED: dextrose 50%-water 50ml dispensing syringe IV PRN ×2 (02:10)
[2019-08-23] MEDS ORDERED: MESSAGE TO PHARMACY PO ONE (02:10)
[2019-08-23] MEDS ORDERED: dextrose ORAL solution 15 GM/59 ML bottle PO PRN ×2 (02:10)
[2019-08-23] MEDS ORDERED: ipratropium/albuterol 3ml nebule NEB PRN (02:10)
[2019-08-23 06:00] VITALS: BP 120/47
--- NOTE | 2019-08-23 06:12 | NUR ---
received report from abdirizak shaffer
[2019-08-23 06:22] LABS: BASOPHILS % (AUTO) 0.6 % (0-1); EOSINOPHILS # (AUTO) 0.5 X10'3 (0-0.9); EOSINOPHILS % (AUTO) 9.6 % (0-6); HEMOGLOBIN 9.5 g/dl (12.0-16.0); LYMPHOCYTES # (AUTO) 0.9 X10'3 (1.1-4.8); LYMPHOCYTES % (AUTO) 16.3 % (21-51); MEAN CORPUSCULAR HEMOGLOBIN 29.5 PG (27.0-31.0); MEAN CORPUSCULAR HGB CONC 32.7 g/dL (33.0-36.5); MEAN CORPUSCULAR VOLUME 90.2 FL (78-98); MONOCYTES # (AUTO) 0.7 X10'3 (0-0.9); NEUTROPHILS # (AUTO) 3.3 X10'3 (1.8-7.7); NEUTROPHILS % (AUTO) 61.5 % (42-75); PLATELET COUNT 166 X10'3 (140-440); RED BLOOD COUNT 3.22 X10'6 (4.20-5.60); RED CELL DISTRIBUTION WIDTH 20.6 % (11.5-14.5); WHITE BLOOD COUNT 5.4 X10'3 (4.5-11.0)
--- NOTE | 2019-08-23 06:22 | NUR ---
Problems reprioritized. Patient report given, questions answered & plan of care reviewed with JACINTO Phillips.
[2019-08-23 06:54] LABS: ALANINE AMINOTRANSFERASE 74 U/L (12-78); ALBUMIN 2.9 G/DL (3.4-5.0); ALBUMIN/GLOBULIN RATIO 0.8 (1.1-1.5); ALKALINE PHOSPHATASE 58 IU/L (46-116); ANION GAP 9 (8-16); ASPARTATE AMINO TRANSFERASE 97 U/L (10-37); BILIRUBIN,TOTAL 0.8 MG/DL (0.1-1.0); BLOOD UREA NITROGEN 75 MG/DL (7-18); BUN/CREATININE RATIO 17.4 (6.6-38.0); CALCIUM 8.7 MG/DL (8.5-10.1); CHLORIDE 105 MMOL/L (99-107); CREATININE 4.32 MG/DL (0.40-0.90); GLUCOSE 119 MG/DL (70-104); MAGNESIUM 1.9 MG/DL (1.5-2.4); SODIUM 141 MMOL/L (135-145); TOTAL CARBON DIOXIDE 26.6 MMOL/L (24-32); TOTAL PROTEIN 6.4 G/DL (6.4-8.2); eGFR 10 ML/MIN
[2019-08-23] MEDS: ipratropium/albuterol 3ml nebule NEB SCH ×4 (07:00→20:30)
[2019-08-23 07:02] LABS: TOTAL CELLS COUNTED 100
[2019-08-23 07:03] LABS: ANISOCYTOSIS 3+; ELLIPTOCYTES 1+; PLATELET ESTIMATE NORMAL; POLYCHROMASIA 1+
[2019-08-23] MEDS: K and/or MAG REPLACEMENT MC SCH ×2 (07:32→20:00)
[2019-08-23] MEDS: heparin, porcine 5000 units/ml vial SQ SCH ×3 (07:34→19:34)
[2019-08-23] MEDS: pregabalin 25mg capsule PO SCH ×3 (07:44→20:02)
[2019-08-23] MEDS: duloxetine 30mg CAPSULE.DR PO SCH (07:45)
[2019-08-23] MEDS: ESCITALOPRAM OXALATE 5 MG TABLET PO SCH (07:47)
[2019-08-23] MEDS: HYDROcodone/acetaminophen 10/325mg tab PO PRN ×3 (07:54→18:44)
[2019-08-23 10:00] VITALS: BP 113/53
[2019-08-23 10:34] LABS: CREATINE KINASE 57 U/L (26-192)
[2019-08-23] MEDS: normal saline 1000ml 1,000 ML IV SCH ×3 (11:37→23:00)
[2019-08-23] MEDS: furosemide 20 MG/2 ML vial IV SCH ×2 (12:07→19:34)
[2019-08-23] MEDS: CefTRIAXone/D5W-Rocephin 1gm 50 ML IV SCH (12:09)
--- NOTE | 2019-08-23 13:45 | NUR ---
DM consult: Pt A1C <7 and not appropriate for DM ed at this time. Pt admit w/ L hip fx s/p fall. Currently HEATHER on CKD w/ probable UTI per MD note. Pt AOx2 at this time. PO pending. To OR once condition more stable per MD note. Will monitor for additional protein needs this admit. Addendum: 08/23/19 at [address] Amended: Links added.
[2019-08-23 18:00] VITALS: BP 116/44
--- NOTE | 2019-08-23 18:18 | NUR ---
GAVE REPORT TO JACINTO ROWE
--- NOTE | 2019-08-23 18:20 | NUR ---
Patient in room ORTHO 4009. I have received report from Jacqueline CASEY and had the opportunity to ask questions and assume patient care.
[2019-08-23] MEDS: aspirin 81mg tablet.DR PO SCH (20:02)
[2019-08-23] MEDS: atorvastatin 20mg tablet PO SCH (20:02)
[2019-08-23] MEDS: insulin glargine (Lantus) pen - multi-dose SQ SCH (21:00)
[2019-08-23 22:00] VITALS: BP 131/107
[2019-08-24] VITALS (15 sets, daily range): BP systolic 105–169; BP diastolic 47–70
[2019-08-24 05:01] LABS: BASOPHILS % (AUTO) 0.5 % (0-1); EOSINOPHILS # (AUTO) 0.1 X10'3 (0-0.9); EOSINOPHILS % (AUTO) 3.1 % (0-6); HEMATOCRIT 29.1 % (35.0-45.0); HEMOGLOBIN 9.5 g/dl (12.0-16.0); LYMPHOCYTES # (AUTO) 0.5 X10'3 (1.1-4.8); LYMPHOCYTES % (AUTO) 12.5 % (21-51); MEAN CORPUSCULAR HEMOGLOBIN 29.8 PG (27.0-31.0); MEAN CORPUSCULAR HGB CONC 32.7 g/dL (33.0-36.5); MEAN CORPUSCULAR VOLUME 91.3 FL (78-98); MONOCYTES # (AUTO) 0.4 X10'3 (0-0.9); MONOCYTES % (AUTO) 9.6 % (2-12); NEUTROPHILS # (AUTO) 3.2 X10'3 (1.8-7.7); NEUTROPHILS % (AUTO) 74.3 % (42-75); PLATELET COUNT 148 X10'3 (140-440); RED BLOOD COUNT 3.19 X10'6 (4.20-5.60); RED CELL DISTRIBUTION WIDTH 20.3 % (11.5-14.5); WHITE BLOOD COUNT 4.3 X10'3 (4.5-11.0)
[2019-08-24 05:52] LABS: ALBUMIN 2.7 G/DL (3.4-5.0); ANION GAP 11 (8-16); BLOOD UREA NITROGEN 75 MG/DL (7-18); BUN/CREATININE RATIO 18.2 (6.6-38.0); CALCIUM 8.2 MG/DL (8.5-10.1); CHLORIDE 106 MMOL/L (99-107); CREATININE 4.11 MG/DL (0.40-0.90); GLUCOSE 158 MG/DL (70-104); MAGNESIUM 1.9 MG/DL (1.5-2.4); POTASSIUM 5.5 MMOL/L (3.5-5.1); SODIUM 140 MMOL/L (135-145); TOTAL CARBON DIOXIDE 23.3 MMOL/L (24-32); eGFR 10 ML/MIN
--- NOTE | 2019-08-24 06:22 | NUR ---
Problems reprioritized. Patient report given, questions answered & plan of care reviewed with Ally CASEY.
--- NOTE | 2019-08-24 06:36 | NUR ---
Patient in room ORTHO 4009. I have received report from JACINTO Huitron and had the opportunity to ask questions and assume patient care.
[2019-08-24] MEDS: heparin, porcine 5000 units/ml vial SQ SCH ×2 (07:21→20:42)
[2019-08-24] MEDS: K and/or MAG REPLACEMENT MC SCH ×2 (08:00→20:00)
[2019-08-24] MEDS: ipratropium/albuterol 3ml nebule NEB SCH ×4 (08:04→20:48)
[2019-08-24] MEDS: furosemide 20 MG/2 ML vial IV SCH ×2 (08:37→20:34)
[2019-08-24] MEDS: CefTRIAXone/D5W-Rocephin 1gm 50 ML IV SCH (08:37)
--- NOTE | 2019-08-24 12:38 | NUR ---
Called report to Dorothy in recovery room.
--- NOTE | 2019-08-24 12:44 | NUR ---
Pt transported out of room to surgery. senior cytotechnologist notified.
[2019-08-24] MEDS: pregabalin 25mg capsule PO SCH ×3 (13:00→21:00)
[2019-08-24 13:31] LABS: ISTAT CREATININE 3.5 mg/dL (0.6-1.1); ISTAT HGB 10.5 g/dl (12.0-16.0); ISTAT IONIZED CALCIUM 1.15 mmol/L (1.03-1.32); ISTAT K 4.9 mmol/L (3.5-5.1); POC BUN/CREATININE RATIO 22.9 (6.6-38.0)
--- NOTE | 2019-08-24 13:42 | NUR ---
Pt returned to room from OR.
[2019-08-24] MEDS: duloxetine 30mg CAPSULE.DR PO SCH (14:05)
[2019-08-24] MEDS: ESCITALOPRAM OXALATE 5 MG TABLET PO SCH (14:06)
[2019-08-24] MEDS: normal saline 1000ml 1,000 ML IV SCH (14:06)
--- NOTE | 2019-08-24 14:06 | NUR ---
DM Consult: Pt new A1C 7.0; AOx2 and not appropriate for DM ed at this time. Addendum: 08/24/19 at [address] Amended: Links added.
--- NOTE | 2019-08-24 14:09 | NUR ---
Administered Lyrica under 0800 time, 1300 dose not-administered. AM meds administered late d/t pt scheduled for surgery today.
--- NOTE | 2019-08-24 16:37 | NUR ---
Dr. Norris at [facility]. Informed MD of pt's change of mental status and decreasing 02 sats. Order received for chest x-ray and ABG. Addendum: 08/24/19 at 1642 by Ally Loco RN RT [place] r/t ABG.
[2019-08-24] MEDS ORDERED: ipratropium/albuterol 3ml nebule NEB PRN (17:15)
[2019-08-24 17:40] LABS: ABG BASE EXCESS -4.1 mmol/L (-2.0-3.0); ABG HCO3 24.4 mmol/L (22.0-26.0); ABG OXYGEN SATURATION 84.8 % (95-98); ABG PCO2 (T) 62.3 mmHg (35.0-45.0); ABG PH (T) 7.211 (7.350-7.450); ABG PO2 (T) 57.7 mmHg (83-108); FCOHb 0.4 % (0.5-1.5); FLOW 4 L/min; FMetHb 0.2 % (0.3-1.12); FO2Hb 84.3 % (94-100)
--- NOTE | 2019-08-24 17:44 | NUR ---
Paged Dr. Norris re ABG results. PAGER ID: [phone] MESSAGE: Jimi Linn in 3591B ABG resulted. pO2 57.7, pCO2 62.3. Thanks! Shruti CASEY [phone] Addendum: 08/24/19 at 17[address] Loco RN Dr[address] Norris phoned & ordered pt transferred to [facility] with bipap and repeat ABG after 2 hours.
[2019-08-24 18:12] LABS: ALBUMIN 2.7 G/DL (3.4-5.0); ANION GAP 13 (8-16); BLOOD UREA NITROGEN 72 MG/DL (7-18); BUN/CREATININE RATIO 21.2 (6.6-38.0); CALCIUM 8.2 MG/DL (8.5-10.1); CHLORIDE 106 MMOL/L (99-107); CREATININE 3.39 MG/DL (0.40-0.90); GLUCOSE 131 MG/DL (70-104); POTASSIUM 4.7 MMOL/L (3.5-5.1); SODIUM 144 MMOL/L (135-145); TOTAL CARBON DIOXIDE 25.1 MMOL/L (24-32); eGFR 13 ML/MIN
--- NOTE | 2019-08-24 18:14 | NUR ---
Problems reprioritized. Patient report given, questions answered & plan of care reviewed with JACINTO Huitron.
--- NOTE | 2019-08-24 19:13 | NUR ---
Problems reprioritized. Patient report given, questions answered & plan of care reviewed with Aminta CASEY.
--- NOTE | 2019-08-24 19:22 | NUR ---
Patient in room ORTHO 4009. I have received report from JACINTO Huitron and had the opportunity to ask questions and assume patient care.
--- NOTE | 2019-08-24 19:52 | NUR ---
Pt to U, bed 3018A. Pt belongings and meds sent with pt.
[2019-08-24] MEDS: morphine 2 MG/ML inj. syringe IV PRN (20:39)
[2019-08-24] MEDS: insulin glargine (Lantus) pen - multi-dose SQ SCH (21:00)
[2019-08-24] MEDS: atorvastatin 20mg tablet PO SCH (21:00)
[2019-08-24] MEDS: aspirin 81mg tablet.DR PO SCH (21:00)
[2019-08-24 21:50] LABS: ABG BASE EXCESS -4.8 mmol/L (-2.0-3.0); ABG HCO3 23.1 mmol/L (22.0-26.0); ABG OXYGEN SATURATION 94.5 % (95-98); ABG PCO2 (T) 56.1 mmHg (35.0-45.0); ABG PH (T) 7.233 (7.350-7.450); ABG PO2 (T) 84.2 mmHg (83-108); FMetHb 0.2 % (0.3-1.12); FO2Hb 93.4 % (94-100); MINUTE VOLUME 10 L/min; RESPIRATORY RATE 16 b/min; RESPIRATORY RATE (OBSERVED) 22 b/min; TOTAL HEMOGLOBIN 11.3 G/dl (12.0-16.0)
[2019-08-24] MEDS: nystatin 15 GM powder TP SCH (22:35)
[2019-08-25] VITALS (8 sets, daily range): BP systolic 141–178; BP diastolic 42–79
--- NOTE | 2019-08-25 02:47 | NUR ---
Sent to Victor Manuel: MESSAGE: room 3018 B, Nila Linn: Placed pt NPO nelsy D/T difficulty swallowing. She will have swallow eval in am. Would you like to order fluids for her? Thank you, [phone]
--- NOTE | 2019-08-25 03:32 | NUR ---
Sent to [facility] PAGER ID: [phone] MESSAGE: room 3018B Kaveh, Hope: RT would like another ABG to assess pt CO2 status. It has been 6 hrs since the last. Please let us know if that is ok. Thank you, Aminta [phone] ([phone] character message out of a maximum of [phone])
[2019-08-25 04:06] LABS: ABG BASE EXCESS -1.3 mmol/L (-2.0-3.0); ABG OXYGEN SATURATION 96.3 % (95-98); ABG PCO2 (T) 56.7 mmHg (35.0-45.0); ABG PO2 (T) 97.8 mmHg (83-108); FCOHb 0.6 % (0.5-1.5); FMetHb 0.2 % (0.3-1.12); FO2Hb 95.5 % (94-100); MINUTE VOLUME 10 L/min; RESPIRATORY RATE 20 b/min; RESPIRATORY RATE (OBSERVED) 20 b/min
[2019-08-25] MEDS: morphine 2 MG/ML inj. syringe IV PRN ×3 (04:57→23:35)
[2019-08-25 05:35] LABS: BASOPHILS % (AUTO) 0.7 % (0-1); EOSINOPHILS # (AUTO) 0.3 X10'3 (0-0.9); EOSINOPHILS % (AUTO) 6.9 % (0-6); HEMOGLOBIN 10.5 g/dl (12.0-16.0); LYMPHOCYTES # (AUTO) 0.5 X10'3 (1.1-4.8); LYMPHOCYTES % (AUTO) 12.6 % (21-51); MEAN CORPUSCULAR HEMOGLOBIN 29.2 PG (27.0-31.0); MEAN CORPUSCULAR HGB CONC 32.9 g/dL (33.0-36.5); MEAN CORPUSCULAR VOLUME 88.9 FL (78-98); MEAN PLATELET VOLUME 8.9 FL (7.4-10.4); MONOCYTES # (AUTO) 0.5 X10'3 (0-0.9); MONOCYTES % (AUTO) 10.7 % (2-12); NEUTROPHILS % (AUTO) 69.1 % (42-75); PLATELET COUNT 185 X10'3 (140-440); WHITE BLOOD COUNT 4.3 X10'3 (4.5-11.0)
[2019-08-25 05:41] LABS: ALBUMIN 2.8 G/DL (3.4-5.0); ANION GAP 10 (8-16); BLOOD UREA NITROGEN 65 MG/DL (7-18); BUN/CREATININE RATIO 23.7 (6.6-38.0); CALCIUM 8.9 MG/DL (8.5-10.1); CHLORIDE 105 MMOL/L (99-107); CREATININE 2.74 MG/DL (0.40-0.90); GLUCOSE 124 MG/DL (70-104); MAGNESIUM 1.6 MG/DL (1.5-2.4); POTASSIUM 4.3 MMOL/L (3.5-5.1); SODIUM 144 MMOL/L (135-145); TOTAL CARBON DIOXIDE 28.7 MMOL/L (24-32); eGFR 17 ML/MIN
--- NOTE | 2019-08-25 06:29 | NUR ---
Problems reprioritized. Patient report given, questions answered & plan of care reviewed with JACINTO Ovalles .
--- NOTE | 2019-08-25 07:02 | NUR ---
Patient in room PCU 3018. I have received report from JACINTO Lemos and had the opportunity to ask questions and assume patient care. Patient asleep in bed and in no acute distress.
[2019-08-25 07:40] LABS: ANISOCYTOSIS 2+; PLATELET ESTIMATE NORMAL
[2019-08-25] MEDS: K and/or MAG REPLACEMENT MC SCH ×2 (08:00→20:00)
[2019-08-25] MEDS: CefTRIAXone/D5W-Rocephin 1gm 50 ML IV SCH (08:19)
[2019-08-25] MEDS: furosemide 20 MG/2 ML vial IV SCH ×2 (08:21→21:31)
[2019-08-25] MEDS: nystatin 15 GM powder TP SCH ×3 (08:21→21:00)
[2019-08-25] MEDS: heparin, porcine 5000 units/ml vial SQ SCH ×2 (08:21→21:31)
[2019-08-25] MEDS: pregabalin 25mg capsule PO SCH ×3 (08:22→21:32)
[2019-08-25] MEDS: duloxetine 30mg CAPSULE.DR PO SCH (08:22)
[2019-08-25] MEDS: ipratropium/albuterol 3ml nebule NEB SCH ×4 (08:31→19:48)
--- NOTE | 2019-08-25 11:14 | NUR ---
PAGER ID: [phone] MESSAGE: 3018B: Nila Linn. Do you want an ABG to be performed? Per report an ABG was wanted on day shift, but there are no orders. Thanks Charlette Schwarz [phone] Addendum: 08/25/19 at 1118 by Charlette Fuller RN New orders by Dr. Chavez via telephone: order ABG.
[2019-08-25 12:10] LABS: ABG HCO3 26.3 mmol/L (22.0-26.0); ABG OXYGEN SATURATION 91.2 % (95-98); ABG PCO2 (T) 50.6 mmHg (35.0-45.0); ABG PH (T) 7.334 (7.350-7.450); ABG PO2 (T) 64.4 mmHg (83-108); ALLEN'S TEST Positive; FCOHb 0.4 % (0.5-1.5); FMetHb 0.1 % (0.3-1.12); FO2Hb 90.7 % (94-100); RESPIRATORY RATE 16 b/min; RESPIRATORY RATE (OBSERVED) 18 b/min; TOTAL HEMOGLOBIN 11.3 G/dl (12.0-16.0)
[2019-08-25] MEDS: ESCITALOPRAM OXALATE 5 MG TABLET PO SCH (12:15)
--- NOTE | 2019-08-25 12:17 | NUR ---
PAGER ID: [phone] MESSAGE: 3018B: Nila Linn. ABG results: ph 7.334, pCO2 50.6, pO2 50.6, HCO3 26.3. Thanks Charlette Schwarz [phone]
--- NOTE | 2019-08-25 12:45 | NUR ---
Massimo trigger: Pt documented with Massimo of 12. Pt presents with BLE cellulitis and a necrotic LLE vascular wound per WOC note and +1 bilateral leg edema. Pt on renal diet with texture modification from regular to pureed with thin liquids per ST recs. Prior to texture modifications, pt eating 0-25% with meal refusals not meeting nutrient needs. Pt may benefit from ONS if poor PO intake continues. Pt AOx2, not appropriate for education at this time. LBM 08/22, pt may benefit from routine bowel care d/w bedside RN. Will continue to monitor. Recommendation: 1. Continue pureed, renal diet with thin liquid per ST recs; encourage PO intake 2. Monitor for ONS need 3. Routine bowel care 4. Weight per rx Addendum: 08/25/19 at 1245 by Wing Tri NORRIS Amended: Links added. Addendum: 08/25/19 at [address] MYRNA Caballero
[2019-08-25] MEDS ORDERED: methylPREDNISolone sod succ 125mg/2ml vial IV SCH (14:00)
--- NOTE | 2019-08-25 17:22 | NUR ---
[place] documentation: I have reviewed and agree with all interventions, assessments performed and documented by JACINTO El. [place] Medication Administration: For this medication-pass time frame, all medication were reviewed, dispensed, administered and documented per hospital policy by JACINTO El.
--- NOTE | 2019-08-25 18:24 | NUR ---
Problems reprioritized. Patient report given, questions answered & plan of care reviewed with JACINTO Lemos. Patient stable at transfer of care.
--- NOTE | 2019-08-25 18:28 | NUR ---
Patient in room PCU 3018. I have received report from JACINTO Ovalles and had the opportunity to ask questions and assume patient care.
--- NOTE | 2019-08-25 19:41 | NUR ---
Scanner inoperable and unable to scan 1mg IV morphine.
[2019-08-25] MEDS: insulin glargine (Lantus) pen - multi-dose SQ SCH (21:26)
[2019-08-25] MEDS: aspirin 81mg tablet.DR PO SCH (21:34)
[2019-08-25] MEDS: atorvastatin 20mg tablet PO SCH (21:34)
[2019-08-26] VITALS (22 sets, daily range): BP systolic 129–196; BP diastolic 56–97
[2019-08-26] MEDS: methylPREDNISolone sod succ 125mg/2ml vial IV SCH ×3 (01:13→16:00)
[2019-08-26] MEDS: morphine 2 MG/ML inj. syringe IV PRN ×2 (04:08→12:33)
--- NOTE | 2019-08-26 04:22 | NUR ---
Sent Lesli PAGER ID: [phone] MESSAGE: june 2017 Nila Fischer: BP 190/82 Please advise
[2019-08-26 05:13] LABS: BASOPHILS % (AUTO) 0.4 % (0-1); EOSINOPHILS % (AUTO) 0 % (0-6); HEMATOCRIT 33.7 % (35.0-45.0); HEMOGLOBIN 11.1 g/dl (12.0-16.0); LYMPHOCYTES # (AUTO) 0.3 X10'3 (1.1-4.8); LYMPHOCYTES % (AUTO) 7.3 % (21-51); MEAN CORPUSCULAR HGB CONC 33.1 g/dL (33.0-36.5); MEAN CORPUSCULAR VOLUME 87.7 FL (78-98); MEAN PLATELET VOLUME 8.6 FL (7.4-10.4); MONOCYTES # (AUTO) 0.1 X10'3 (0-0.9); MONOCYTES % (AUTO) 2.5 % (2-12); NEUTROPHILS # (AUTO) 3.7 X10'3 (1.8-7.7); NEUTROPHILS % (AUTO) 89.8 % (42-75); PLATELET COUNT 202 X10'3 (140-440); RED BLOOD COUNT 3.84 X10'6 (4.20-5.60); RED CELL DISTRIBUTION WIDTH 19.4 % (11.5-14.5); WHITE BLOOD COUNT 4.1 X10'3 (4.5-11.0)
[2019-08-26 05:29] LABS: ALBUMIN 2.8 G/DL (3.4-5.0); ANION GAP 11 (8-16); BLOOD UREA NITROGEN 57 MG/DL (7-18); BUN/CREATININE RATIO 30.6 (6.6-38.0); CALCIUM 9.2 MG/DL (8.5-10.1); CHLORIDE 103 MMOL/L (99-107); CREATININE 1.86 MG/DL (0.40-0.90); GLUCOSE 225 MG/DL (70-104); MAGNESIUM 1.5 MG/DL (1.5-2.4); POTASSIUM 4.3 MMOL/L (3.5-5.1); SODIUM 146 MMOL/L (135-145); TOTAL CARBON DIOXIDE 32.4 MMOL/L (24-32); eGFR 26 ML/MIN
--- NOTE | 2019-08-26 06:24 | NUR ---
Problems reprioritized. Patient report given, questions answered & plan of care reviewed with JACINTO Estrada.
--- NOTE | 2019-08-26 06:27 | NUR ---
Patient in room PCU 3018B. I have received report from Aminta CASEY and had the opportunity to ask questions and assume patient care.
[2019-08-26 06:47] LABS: ANISOCYTOSIS 2+; PLATELET ESTIMATE NORMAL
[2019-08-26] MEDS: ipratropium/albuterol 3ml nebule NEB SCH ×4 (07:58→19:54)
[2019-08-26] MEDS: K and/or MAG REPLACEMENT MC SCH ×2 (08:00→20:00)
[2019-08-26] MEDS: CefTRIAXone/D5W-Rocephin 1gm 50 ML IV SCH (08:05)
[2019-08-26] MEDS: pregabalin 25mg capsule PO SCH ×3 (08:05→20:03)
[2019-08-26] MEDS: ESCITALOPRAM OXALATE 5 MG TABLET PO SCH (08:06)
[2019-08-26] MEDS: furosemide 20 MG/2 ML vial IV SCH ×2 (08:06→20:03)
[2019-08-26] MEDS: duloxetine 30mg CAPSULE.DR PO SCH (08:06)
[2019-08-26] MEDS: heparin, porcine 5000 units/ml vial SQ SCH ×2 (08:07→20:03)
[2019-08-26] MEDS: metoprolol tartrate 25mg tablet PO SCH ×2 (08:17→20:02)
[2019-08-26] MEDS: nystatin 15 GM powder TP SCH ×2 (08:17→12:33)
[2019-08-26] MEDS: insulin Lispro (HumaLOG) vial - multi-dose SQ SCH ×2 (09:11→13:21)
--- NOTE | 2019-08-26 10:00 | NUR ---
Pt unable to sign consent for self. Spoke with family member Ally Torres via telephone regarding pt's ordered surgery and consent. 2 RN confirmation of verification and consent from family member for patients Left ORIF today.
[2019-08-26] MEDS ORDERED: ringers solution, lacted 1,000 ML IV SCH ×3 (10:15→14:39)
--- NOTE | 2019-08-26 10:31 | NUR ---
Paged PICC nurse Gerson Mccloud [phone]. Please place PIV when you have the chance. Pt goes to OR at 1500. Thank you!
--- NOTE | 2019-08-26 10:36 | NUR ---
Paged Dr Delgado regarding pts elevated blood pressure PAGER ID: [phone] MESSAGE: Natalie rowan [phone]. RE Gerson Linn Pt BP 196/71; received Lopressor 25 mg @ 0817. Please advise. Thank you!
[2019-08-26] MEDS: hydrALAZINE 20mg/ml inj. IV PRN (11:17)
[2019-08-26 11:32] LABS: PARTIAL THROMBOPLASTIN TIME 26 SECONDS (22-32)
--- NOTE | 2019-08-26 12:21 | NUR ---
Paged Dr Delgado regarding followup BP after PRN hydralazine given PAGER ID: [phone] MESSAGE: Natalie rowan [phone]. RE Gerson Linn 3018B. FYI that BP read 202/65 on machine, manual BP 185/72. PRN hydralazine 10 mg given at 11:17 am.
[2019-08-26] MEDS ORDERED: HYDROmorphone inj. 0.5 MG/0.5 ML DISP.SYRIN IV PRN (13:05)
[2019-08-26] MEDS ORDERED: morphine 4 MG/ML inj SYRINge IV PRN ×3 (13:05→14:40)
[2019-08-26] MEDS ORDERED: ondansetron/PF 4mg/2ml inj IV PRN ×2 (13:05→14:40)
[2019-08-26] MEDS ORDERED: BUPIVAcaine/PF 2.5 mg/ml (0.25%) 30ml vial ONE (13:24)
[2019-08-26] MEDS ORDERED: famotidine/PF 10 mg/ml inj IV ONE (14:00)
[2019-08-26] MEDS ORDERED: enalaprilat dihydrate 2.5mg/2ml vial IV PRN (14:40)
[2019-08-26] MEDS ORDERED: hydrALAZINE 20mg/ml inj. IV PRN (14:40)
[2019-08-26] MEDS ORDERED: fentaNYL/PF 50MCG/1 ML 2ML syringe IV PRN ×2 (14:40)
--- NOTE | 2019-08-26 14:44 | NUR ---
Pt taken to OR with signed consent, Geovanna and JOHANA running. Respiratory therapist went down while keeping pt on BIPAP. Report called to PACU.
[2019-08-26] MEDS ORDERED: ceFAZolin 1GM/D5W- ADD-VANTAGE 50 ML IV ONE (15:00)
[2019-08-26] MEDS ORDERED: LIDOcaine 2% (20mg/ml) 5ml vial ONE (15:10)
[2019-08-26] MEDS ORDERED: propofol inj 20 ML IV ONE (15:10)
--- NOTE | 2019-08-26 16:25 | NUR ---
Received from OR via BED, accompanied by Anesthesiologist DR CARRION-- and report given by Anesthesiolgist. PATIENT A&OX4, DENIES PAIN, V/S WNL, NEUROVASCULAR CHECKS INTACT, 20G PIV AND 22G LUE, SCD ON, LEFT HIP ISLAND DRESSING CDI, F/C DRAINING CLEAR YELLOW URINE. SENSATIONS T11, BG 258 4UNITS REG INSULIN ORDERED.
[2019-08-26] MEDS ORDERED: insulin glargine (Lantus) pen - multi-dose SQ ONE (16:30)
[2019-08-26] MEDS ORDERED: insulin regular, human 10 units/0.1 ml syringe ONE (16:38)
--- NOTE | 2019-08-26 17:09 | NUR ---
Received report from PACU, that patient is on NC 10 L sat at 95% NC, VSS, that patient has no pain complaints at this time
--- NOTE | 2019-08-26 17:15 | NUR ---
PATIENT A&OX4, DENIES PAIN, V/S WNL, NEUROVASCULAR CHECKS INTACT, 20G PIV AND 22G LUE, SCD ON, LEFT HIP ISLAND DRESSING CDI, F/C DRAINING CLEAR YELLOW URINE. SENSATIONS T11, PATIENT TAKEN TO 3018B WITH ALL BELONGINGS AND HOOKED UP TO MONITORS IN ROOM AND REPORT GIVEN TO RN WHO HAS TAKEN OVER PATIENT CARE.
--- NOTE | 2019-08-26 17:35 | NUR ---
Patient returned to room from PACU. VSS, no complaints of pain. Pt connected back to bedside mobile. Dressing intact on left hip surgical site. Post op vital signs initiated. Will monitor closely
--- NOTE | 2019-08-26 18:37 | NUR ---
Problems reprioritized. Patient report given, questions answered & plan of care reviewed with Yessy CASEY. Pt recovering from Left ORIF. Post op VSS initiated, patient stable
--- NOTE | 2019-08-26 18:45 | NUR ---
Patient in room PCU 3018. I have received report from Natalie CASEY and had the opportunity to ask questions and assume patient care. Patient is resting after her surgery. She is alert but still a little sleepy. Will continue to monitor.
[2019-08-26] MEDS: aspirin 81mg tablet.DR PO SCH (20:02)
[2019-08-26] MEDS: atorvastatin 20mg tablet PO SCH (20:02)
[2019-08-26] MEDS: insulin glargine (Lantus) pen - multi-dose SQ SCH (22:21)
[2019-08-27] MEDS: methylPREDNISolone sod succ 125mg/2ml vial IV SCH ×3 (00:34→16:23)
[2019-08-27] MEDS: ceFAZolin 1GM/D5W- ADD-VANTAGE 50 ML IV SCH ×3 (00:34→16:23)
[2019-08-27] MEDS: nystatin 15 GM powder TP SCH ×4 (02:02→21:00)
[2019-08-27] MEDS: morphine 2 MG/ML inj. syringe IV PRN ×2 (02:04→20:48)
[2019-08-27 03:00] VITALS: BP 156/64
[2019-08-27 05:21] LABS: BASOPHILS % (AUTO) 0.1 % (0-1); EOSINOPHILS % (AUTO) 0 % (0-6); HEMATOCRIT 31.3 % (35.0-45.0); HEMOGLOBIN 10.4 g/dl (12.0-16.0); LYMPHOCYTES # (AUTO) 0.5 X10'3 (1.1-4.8); LYMPHOCYTES % (AUTO) 6.8 % (21-51); MEAN CORPUSCULAR HEMOGLOBIN 29.4 PG (27.0-31.0); MEAN CORPUSCULAR HGB CONC 33.3 g/dL (33.0-36.5); MEAN CORPUSCULAR VOLUME 88.2 FL (78-98); MEAN PLATELET VOLUME 8.7 FL (7.4-10.4); MONOCYTES # (AUTO) 0.5 X10'3 (0-0.9); MONOCYTES % (AUTO) 6.2 % (2-12); NEUTROPHILS # (AUTO) 6.7 X10'3 (1.8-7.7); NEUTROPHILS % (AUTO) 86.9 % (42-75); PLATELET COUNT 211 X10'3 (140-440); RED BLOOD COUNT 3.55 X10'6 (4.20-5.60); RED CELL DISTRIBUTION WIDTH 19.3 % (11.5-14.5); WHITE BLOOD COUNT 7.7 X10'3 (4.5-11.0)
[2019-08-27 05:31] LABS: ALBUMIN 2.7 G/DL (3.4-5.0); ANION GAP 4 (8-16); BLOOD UREA NITROGEN 65 MG/DL (7-18); BUN/CREATININE RATIO 37.6 (6.6-38.0); CALCIUM 9.4 MG/DL (8.5-10.1); CHLORIDE 104 MMOL/L (99-107); CREATININE 1.73 MG/DL (0.40-0.90); GLUCOSE 243 MG/DL (70-104); MAGNESIUM 1.6 MG/DL (1.5-2.4); SODIUM 146 MMOL/L (135-145); eGFR 28 ML/MIN
[2019-08-27 06:00] VITALS: BP 156/79
--- NOTE | 2019-08-27 06:40 | NUR ---
Patient in room PCU 3018. I have received report from Yessy CASEY and had the opportunity to ask questions and assume patient care.
--- NOTE | 2019-08-27 06:40 | NUR ---
Problems reprioritized. Patient report given, questions answered & plan of care reviewed with Ke CASEY.
[2019-08-27] MEDS: ipratropium/albuterol 3ml nebule NEB SCH ×4 (07:00→19:41)
[2019-08-27 07:55] LABS: ANISOCYTOSIS 2+; PLATELET ESTIMATE NORMAL; TOTAL CELLS COUNTED 100
[2019-08-27 07:56] LABS: ELLIPTOCYTES FEW; POLYCHROMASIA FEW
[2019-08-27] MEDS: K and/or MAG REPLACEMENT MC SCH ×2 (08:00→20:00)
[2019-08-27] MEDS: duloxetine 30mg CAPSULE.DR PO SCH (08:00)
[2019-08-27] MEDS: metoprolol tartrate 25mg tablet PO SCH ×2 (08:00→20:00)
[2019-08-27] MEDS: pregabalin 25mg capsule PO SCH ×3 (08:00→21:00)
[2019-08-27] MEDS: ESCITALOPRAM OXALATE 5 MG TABLET PO SCH (08:00)
[2019-08-27] MEDS: furosemide 20 MG/2 ML vial IV SCH ×2 (08:01→20:48)
[2019-08-27] MEDS: insulin Lispro (HumaLOG) vial - multi-dose SQ SCH ×4 (08:29→21:47)
[2019-08-27 11:00] VITALS: BP 148/69
--- NOTE | 2019-08-27 11:31 | NUR ---
Reassessment: Pt s/p f/u BSS today with ST recs to continue current diet. Pt documented with 50-75% PO intake at breakfast yesterday then was temporarily NPO for ORIF to left hip. D/w RN who reports pt ate about 25% of breakfast this morning. Pt documented as A/O x 1 and confused, receiving assistance with meals per RN. LBM 08/22, d/w RN. Pt to receive PRN MoM. Will continue to follow closely. Recommendation: 1. Continue pureed, renal diet with thin liquid per ST recs; encourage PO intake 2. Monitor for ONS need 3. Routine bowel care 4. Weight per rx Addendum: 08/27/19 at [address] Amended: Links added.
[2019-08-27] MEDS: heparin, porcine 5000 units/ml vial SQ SCH ×2 (11:35→21:02)
[2019-08-27 15:00] VITALS: BP 152/55
[2019-08-27 16:36] LABS: ABG HCO3 35.9 mmol/L (22.0-26.0); ABG OXYGEN SATURATION 94.1 % (95-98); ABG PCO2 (T) 43.9 mmHg (35.0-45.0); ABG PH (T) 7.531 (7.350-7.450); ABG PO2 (T) 69.2 mmHg (83-108); ALLEN'S TEST Positive; FCOHb 0.3 % (0.5-1.5); FMetHb 0.1 % (0.3-1.12); FO2Hb 93.7 % (94-100)
--- NOTE | 2019-08-27 16:47 | NUR ---
PAGER ID: [phone] MESSAGE: PLEASE REVIEW 3018B TOMASZ MARTINES. NEED NEW RT ORDERS? SANDY REYES [phone]. RT STANDING BY Addendum: 08/27/19 at 1657 by Sandy Rodriguez RN Amended: Links added.
--- NOTE | 2019-08-27 18:09 | NUR ---
Problems reprioritized. Patient report given, questions answered & plan of care reviewed with Yessy CASEY.
--- NOTE | 2019-08-27 18:10 | NUR ---
Patient in room PCU 3018. I have received report from Ke CASEY and had the opportunity to ask questions and assume patient care.
[2019-08-27 19:00] VITALS: BP 167/84
--- NOTE | 2019-08-27 19:45 | NUR ---
Mick Ballesteros PAGER ID: [phone] MESSAGE: Yessy REYES [phone], Kaveh Dotson 3018B. L hip fracture- ORIF 08/26. Pt. is febrile and having a hard time waking up. I cannot get her to take PO Tylenol. Can I order Rectal Tylenol Addendum: 08/27/19 at 2001 by Yessy Blanco RN Orders for IV lopressor when HR, BP high and patient cannot take oral medications and Rectal Tylenol.
[2019-08-27] MEDS ORDERED: metoprolol tartrate 1mg/ml inj IV ONE ×2 (20:00→20:20)
[2019-08-27] MEDS: acetaminophen 650mg rectal suppository RC PRN (20:35)
[2019-08-27] MEDS: atorvastatin 20mg tablet PO SCH (21:00)
[2019-08-27] MEDS: aspirin 81mg tablet.DR PO SCH (21:00)
[2019-08-27] MEDS: insulin glargine (Lantus) pen - multi-dose SQ SCH (21:45)
[2019-08-27 22:21] LABS: ABG BASE EXCESS 11.3 mmol/L (-2.0-3.0); ABG HCO3 36.1 mmol/L (22.0-26.0); ABG OXYGEN SATURATION 91.1 % (95-98); ABG PCO2 (T) 51.4 mmHg (35.0-45.0); ABG PH (T) 7.469 (7.350-7.450); ABG PO2 (T) 63.7 mmHg (83-108); ALLEN'S TEST Positive; FCOHb 0.1 % (0.5-1.5); FLOW 4 L/min; FMetHb 0.1 % (0.3-1.12); FO2Hb 90.9 % (94-100); RESPIRATORY RATE (OBSERVED) 20 b/min; TOTAL HEMOGLOBIN 10.9 G/dl (12.0-16.0)
[2019-08-27 23:00] VITALS: BP 157/55
[2019-08-28] MEDS: ceFAZolin 1GM/D5W- ADD-VANTAGE 50 ML IV SCH (00:57)
[2019-08-28] MEDS: methylPREDNISolone sod succ 125mg/2ml vial IV SCH ×3 (00:58→16:39)
[2019-08-28] MEDS: acetaminophen 650mg rectal suppository RC PRN ×2 (02:50→08:41)
[2019-08-28 03:00] VITALS: BP 144/65
[2019-08-28] MEDS: morphine 2 MG/ML inj. syringe IV PRN ×3 (04:12→23:37)
[2019-08-28 05:22] LABS: BASOPHILS % (AUTO) 0.1 % (0-1); EOSINOPHILS % (AUTO) 0 % (0-6); HEMATOCRIT 32.7 % (35.0-45.0); HEMOGLOBIN 10.7 g/dl (12.0-16.0); LYMPHOCYTES # (AUTO) 0.6 X10'3 (1.1-4.8); LYMPHOCYTES % (AUTO) 8.8 % (21-51); MEAN CORPUSCULAR HGB CONC 32.7 g/dL (33.0-36.5); MEAN CORPUSCULAR VOLUME 88.8 FL (78-98); MEAN PLATELET VOLUME 9.1 FL (7.4-10.4); MONOCYTES # (AUTO) 0.5 X10'3 (0-0.9); MONOCYTES % (AUTO) 7.7 % (2-12); NEUTROPHILS # (AUTO) 5.4 X10'3 (1.8-7.7); NEUTROPHILS % (AUTO) 83.4 % (42-75); PLATELET COUNT 221 X10'3 (140-440); RED BLOOD COUNT 3.68 X10'6 (4.20-5.60); RED CELL DISTRIBUTION WIDTH 19.9 % (11.5-14.5); WHITE BLOOD COUNT 6.4 X10'3 (4.5-11.0)
[2019-08-28 05:32] LABS: ALANINE AMINOTRANSFERASE 212 U/L (12-78); ALBUMIN 2.9 G/DL (3.4-5.0); ALBUMIN/GLOBULIN RATIO 0.7 (1.1-1.5); ALKALINE PHOSPHATASE 79 IU/L (46-116); ANION GAP 6 (8-16); ASPARTATE AMINO TRANSFERASE 47 U/L (10-37); BILIRUBIN,TOTAL 0.5 MG/DL (0.1-1.0); BLOOD UREA NITROGEN 75 MG/DL (7-18); BUN/CREATININE RATIO 36.6 (6.6-38.0); CALCIUM 9.4 MG/DL (8.5-10.1); CHLORIDE 108 MMOL/L (99-107); CREATININE 2.05 MG/DL (0.40-0.90); GLUCOSE 254 MG/DL (70-104); MAGNESIUM 1.7 MG/DL (1.5-2.4); POTASSIUM 4.1 MMOL/L (3.5-5.1); SODIUM 152 MMOL/L (135-145); TOTAL CARBON DIOXIDE 37.8 MMOL/L (24-32); TOTAL PROTEIN 7.2 G/DL (6.4-8.2); eGFR 23 ML/MIN
[2019-08-28 06:00] VITALS: BP 180/74
--- NOTE | 2019-08-28 06:20 | NUR ---
Patient in room PCU 3018. I have received report from Yessy CASEY and had the opportunity to ask questions and assume patient care.
[2019-08-28 06:30] LABS: ANISOCYTOSIS 2+; PLATELET ESTIMATE NORMAL
[2019-08-28 06:31] LABS: HYPOCHROMASIA 1+; SCHISTOCYTES FEW
[2019-08-28] MEDS: ipratropium/albuterol 3ml nebule NEB SCH ×4 (07:21→19:19)
[2019-08-28] MEDS: hydrALAZINE 20mg/ml inj. IV PRN (07:26)
[2019-08-28] MEDS: insulin Lispro (HumaLOG) vial - multi-dose SQ SCH ×4 (07:35→22:13)
--- NOTE | 2019-08-28 07:43 | NUR ---
PAGER ID: [phone] MESSAGE: Re: Nila Linn, Room: 3018B. Pt has Auxillary temp of 102.7. Has had temp throughout night. Tylennol suppository given at 0300 last night. Pt More obtunded this morning. -[facility] #[phone] -Dr. Delgado paged concerning Pt's temp.
[2019-08-28] MEDS ORDERED: sodium bicarbonate (8.4%) inj. 100 MEQ in dextrose 5%-water 1,000 ML IV SCH (07:50)
[2019-08-28] MEDS ORDERED: LORazepam 2 mg/ml vial IV STA (07:58)
[2019-08-28] MEDS: K and/or MAG REPLACEMENT MC SCH ×2 (08:00→20:00)
[2019-08-28] MEDS: nystatin 15 GM powder TP SCH ×3 (08:00→21:00)
[2019-08-28] MEDS: pregabalin 25mg capsule PO SCH ×3 (08:00→21:00)
[2019-08-28] MEDS: metoprolol tartrate 25mg tablet PO SCH ×2 (08:00→20:00)
[2019-08-28 08:35] LABS: ABG HCO3 32.8 mmol/L (22.0-26.0); ABG OXYGEN SATURATION 88.3 % (95-98); ABG PCO2 (T) 45.5 mmHg (35.0-45.0); ABG PH (T) 7.483 (7.350-7.450); ABG PO2 (T) 59.5 mmHg (83-108); ALLEN'S TEST Positive; FCOHb 0.3 % (0.5-1.5); FLOW 4 L/min; PATIENT TEMPERATURE 38.9; TOTAL HEMOGLOBIN 11.3 G/dl (12.0-16.0)
[2019-08-28] MEDS: CefTRIAXone/D5W-Rocephin 1gm 50 ML IV SCH (09:41)
[2019-08-28] MEDS: heparin, porcine 5000 units/ml vial SQ SCH ×2 (09:46→19:45)
[2019-08-28 10:28] LABS: CLARITY,URINE SLIGHTLY CLOUDY (Clear); COLOR,URINE YELLOW (Yellow); GLUCOSE, URINE NEGATIVE (Neg); KETONES,URINE NEGATIVE (Neg); LEUKOCYTE ESTERASE ,URINE SMALL (Neg); NITRITES, URINE NEGATIVE (Neg); OCCULT BLOOD,URINE NEGATIVE (Neg); PROTEIN,URINE TRACE mg/dl (Neg); UROBILINOGEN,URINE 0.2 E.U/dL (0.2-1.0)
[2019-08-28 10:37] LABS: UA COLLECTION TYPE STRAIGHT CATH
[2019-08-28 10:49] LABS: SQUAMOUS EPITHELIAL CELL,UR MODERATE /LPF (FEW)
[2019-08-28 10:50] LABS: MUCUS STRANDS FEW /LPF (Neg)
[2019-08-28 10:51] LABS: HYALINE CASTS 0-3 /LPF (NEGATIVE)
[2019-08-28 10:52] LABS: BACTERIA,URINE FEW /HPF (Neg)
[2019-08-28 10:53] LABS: RENAL CELLS, URINE FEW /HPF; TRANSITIONAL EPI CELLS,URINE FEW /HPF
[2019-08-28 10:54] LABS: RBC,URINE 0-2 /HPF (0-2)
[2019-08-28 11:00] VITALS: BP 143/43
[2019-08-28 11:00] LABS: COARSE GRANULAR CAST 0-3 /LPF (NEGATIVE); URIC ACID CRYSTALS 1+ /HPF (NEGATIVE)
[2019-08-28] MEDS ORDERED: LORazepam 2 mg/ml vial IV SCH ×2 (11:05→11:20)
--- NOTE | 2019-08-28 12:10 | NUR ---
Per Dr. Mckinley orders; Give Ativan 1mg q2hrs IV. 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 Concerns were voiced to Dr. Delgado about the frequency and dosage of ativan that was ordered for the Pt by both the charge nurse and Pt's nurse. Concerns included reducing the pt's respiratory drive and making the Pt more obtunded. Dr. Delgado still wanted the ativan dose and frequency to be given and stated to continue to monitor the Pt.
[2019-08-28] MEDS: LORazepam 2 mg/ml vial IV SCH ×3 (13:00→19:44)
[2019-08-28 14:50] LABS: ALANINE AMINOTRANSFERASE 145 U/L (12-78); ALBUMIN 2.6 G/DL (3.4-5.0); ALBUMIN/GLOBULIN RATIO 0.7 (1.1-1.5); ALKALINE PHOSPHATASE 67 IU/L (46-116); ASPARTATE AMINO TRANSFERASE 33 U/L (10-37); BILIRUBIN,TOTAL 0.4 MG/DL (0.1-1.0); BLOOD UREA NITROGEN 78 MG/DL (7-18); BUN/CREATININE RATIO 38.2 (6.6-38.0); CALCIUM 8.8 MG/DL (8.5-10.1); CHLORIDE 108 MMOL/L (99-107); CREATININE 2.04 MG/DL (0.40-0.90); GLUCOSE 283 MG/DL (70-104); POTASSIUM 3.5 MMOL/L (3.5-5.1); SODIUM 151 MMOL/L (135-145); TOTAL PROTEIN 6.1 G/DL (6.4-8.2); eGFR 23 ML/MIN
[2019-08-28 15:00] VITALS: BP 132/50
[2019-08-28 15:06] LABS: ANION GAP -2 (8-16)
[2019-08-28 15:08] LABS: TOTAL CARBON DIOXIDE 44.8 MMOL/L (24-32)
--- NOTE | 2019-08-28 15:13 | NUR ---
PAGER ID: [phone] MESSAGE: Re: Nila Linn, Room: [facility]8B. Critical serum CO2 44.8. -[facility] #[id number] Dr. Deglado paged concerning Pt's critical Co2 44.8
[2019-08-28] MEDS: dextrose 5%-water 1,000 ML IV SCH (15:35)
--- NOTE | 2019-08-28 18:00 | NUR ---
Problems reprioritized. Patient report given, questions answered & plan of care reviewed with Yessy CASEY.
--- NOTE | 2019-08-28 18:15 | NUR ---
Patient in room PCU 3018. I have received report from Ke CASEY and had the opportunity to ask questions and assume patient care.
[2019-08-28 18:34] LABS: ALBUMIN 2.5 G/DL (3.4-5.0); ANION GAP -1 (8-16); BLOOD UREA NITROGEN 74 MG/DL (7-18); BUN/CREATININE RATIO 39.2 (6.6-38.0); CALCIUM 8.6 MG/DL (8.5-10.1); CHLORIDE 108 MMOL/L (99-107); CREATININE 1.89 MG/DL (0.40-0.90); GLUCOSE 229 MG/DL (70-104); POTASSIUM 3.3 MMOL/L (3.5-5.1); SODIUM 152 MMOL/L (135-145); eGFR 26 ML/MIN
[2019-08-28 18:42] LABS: TOTAL CARBON DIOXIDE 44.6 MMOL/L (24-32)
[2019-08-28 19:00] VITALS: BP 139/52
[2019-08-28] MEDS: aspirin 81mg tablet.DR PO SCH (21:00)
[2019-08-28] MEDS: atorvastatin 20mg tablet PO SCH (21:00)
[2019-08-28] MEDS: insulin glargine (Lantus) pen - multi-dose SQ SCH (22:15)
[2019-08-28 23:00] VITALS: BP 161/51
[2019-08-29] MEDS: dextrose 5%-water 1,000 ML IV SCH ×2 (00:34→07:15)
[2019-08-29] MEDS: methylPREDNISolone sod succ 125mg/2ml vial IV SCH ×2 (00:36→08:40)
[2019-08-29 03:00] VITALS: BP 102/68
[2019-08-29] MEDS: morphine 2 MG/ML inj. syringe IV PRN ×2 (04:57→09:00)
[2019-08-29 06:00] VITALS: BP 152/50
--- NOTE | 2019-08-29 06:15 | NUR ---
Patient in room PCU 3018. I have received report from JACINTO Krishnamurthy and had the opportunity to ask questions and assume patient care.
--- NOTE | 2019-08-29 06:16 | NUR ---
Problems reprioritized. Patient report given, questions answered & plan of care reviewed with Manisha CASEY.
[2019-08-29 06:55] LABS: BASOPHILS % (AUTO) 0 % (0-1); EOSINOPHILS % (AUTO) 0 % (0-6); HEMATOCRIT 28.4 % (35.0-45.0); HEMOGLOBIN 9.1 g/dl (12.0-16.0); LYMPHOCYTES # (AUTO) 0.4 X10'3 (1.1-4.8); LYMPHOCYTES % (AUTO) 6.8 % (21-51); MEAN CORPUSCULAR HEMOGLOBIN 28.7 PG (27.0-31.0); MEAN CORPUSCULAR HGB CONC 32.1 g/dL (33.0-36.5); MEAN CORPUSCULAR VOLUME 89.4 FL (78-98); MEAN PLATELET VOLUME 9.3 FL (7.4-10.4); MONOCYTES # (AUTO) 0.3 X10'3 (0-0.9); MONOCYTES % (AUTO) 4.9 % (2-12); NEUTROPHILS # (AUTO) 4.8 X10'3 (1.8-7.7); NEUTROPHILS % (AUTO) 88.3 % (42-75); PLATELET COUNT 155 X10'3 (140-440); RED BLOOD COUNT 3.18 X10'6 (4.20-5.60); RED CELL DISTRIBUTION WIDTH 19.1 % (11.5-14.5); WHITE BLOOD COUNT 5.4 X10'3 (4.5-11.0)
[2019-08-29 07:11] LABS: ALANINE AMINOTRANSFERASE 116 U/L (12-78); ALBUMIN 2.7 G/DL (3.4-5.0); ALBUMIN/GLOBULIN RATIO 0.8 (1.1-1.5); ALKALINE PHOSPHATASE 67 IU/L (46-116); ANION GAP 2 (8-16); ASPARTATE AMINO TRANSFERASE 34 U/L (10-37); BILIRUBIN,TOTAL 0.6 MG/DL (0.1-1.0); BLOOD UREA NITROGEN 67 MG/DL (7-18); BUN/CREATININE RATIO 40.1 (6.6-38.0); CALCIUM 8.5 MG/DL (8.5-10.1); CHLORIDE 104 MMOL/L (99-107); CREATININE 1.67 MG/DL (0.40-0.90); GLUCOSE 334 MG/DL (70-104); MAGNESIUM 1.8 MG/DL (1.5-2.4); POTASSIUM 3.6 MMOL/L (3.5-5.1); SODIUM 147 MMOL/L (135-145); TOTAL PROTEIN 6.2 G/DL (6.4-8.2); eGFR 30 ML/MIN
[2019-08-29 07:21] LABS: TOTAL CARBON DIOXIDE 40.8 MMOL/L (24-32)
--- NOTE | 2019-08-29 07:22 | NUR ---
promotional table spacer PAGER ID: [phone] MESSAGE: JACINTO Dyer, ext [phone], [id number], destiny Linn critical value: CO2 40.8, trending down from previous
[2019-08-29] MEDS: K and/or MAG REPLACEMENT MC SCH ×2 (08:00→20:00)
[2019-08-29] MEDS: ipratropium/albuterol 3ml nebule NEB SCH ×4 (08:09→19:22)
[2019-08-29 08:14] LABS: PLATELET ESTIMATE NORMAL; POIKILOCYTOSIS FEW; POLYCHROMASIA 2+
[2019-08-29 08:15] LABS: ANISOCYTOSIS 2+
[2019-08-29] MEDS: CefTRIAXone/D5W-Rocephin 1gm 50 ML IV SCH (08:39)
[2019-08-29] MEDS: pregabalin 25mg capsule PO SCH ×3 (08:40→21:00)
[2019-08-29] MEDS: metoprolol tartrate 25mg tablet PO SCH ×2 (08:40→19:38)
[2019-08-29] MEDS: heparin, porcine 5000 units/ml vial SQ SCH ×2 (08:40→19:38)
[2019-08-29] MEDS: nystatin 15 GM powder TP SCH ×3 (08:40→21:00)
[2019-08-29] MEDS: insulin Lispro (HumaLOG) vial - multi-dose SQ SCH ×4 (09:00→20:52)
[2019-08-29 11:00] VITALS: BP 128/54
[2019-08-29 15:00] VITALS: BP 131/42
[2019-08-29 16:42] LABS: ALBUMIN 2.4 G/DL (3.4-5.0); ANION GAP 5 (8-16); BLOOD UREA NITROGEN 62 MG/DL (7-18); BUN/CREATININE RATIO 41.6 (6.6-38.0); CALCIUM 8.2 MG/DL (8.5-10.1); CHLORIDE 103 MMOL/L (99-107); CREATININE 1.49 MG/DL (0.40-0.90); GLUCOSE 283 MG/DL (70-104); POTASSIUM 3.4 MMOL/L (3.5-5.1); SODIUM 146 MMOL/L (135-145); TOTAL CARBON DIOXIDE 38.2 MMOL/L (24-32); eGFR 34 ML/MIN
[2019-08-29 18:00] VITALS: BP 152/48
--- NOTE | 2019-08-29 18:35 | NUR ---
Problems reprioritized. Patient report given, questions answered & plan of care reviewed with JACINTO Chung.
--- NOTE | 2019-08-29 19:20 | NUR ---
Patient in room PCU 3018B. I have received report from JACINTO Dyer and had the opportunity to ask questions and assume patient care. Pt resting and in no apparent distress
[2019-08-29] MEDS: aspirin 81mg tablet.DR PO SCH (21:00)
[2019-08-29] MEDS: atorvastatin 20mg tablet PO SCH (21:00)
[2019-08-29] MEDS: insulin glargine (Lantus) pen - multi-dose SQ SCH (21:00)
[2019-08-29 22:00] VITALS: BP 132/49
[2019-08-30 02:30] VITALS: BP 126/83
[2019-08-30] MEDS ORDERED: magnesium 2GM in 50ml NS 50 ML IV PRN (05:45)
[2019-08-30] MEDS ORDERED: potassium Cl 20mEq/100mL bag 100 ML IV PRN (05:45)
[2019-08-30] MEDS ORDERED: magnesium 4gm in 100ml NS 100 ML IV PRN (05:45)
[2019-08-30] MEDS: potassium Cl 20 mEq SR tablet PO PRN ×3 (05:58→19:06)
[2019-08-30 06:00] VITALS: BP 140/48
--- NOTE | 2019-08-30 06:15 | NUR ---
Patient in room PCU 3018. I have received report from JACINTO Chung and had the opportunity to ask questions and assume patient care.
--- NOTE | 2019-08-30 06:19 | NUR ---
Problems reprioritized. Patient report given, questions answered & plan of care reviewed with JACINTO Dyer
[2019-08-30 06:46] LABS: BASOPHILS % (AUTO) 0.1 % (0-1); EOSINOPHILS % (AUTO) 0.5 % (0-6); HEMATOCRIT 27.6 % (35.0-45.0); LYMPHOCYTES % (AUTO) 13.7 % (21-51); MEAN CORPUSCULAR HEMOGLOBIN 28.9 PG (27.0-31.0); MEAN CORPUSCULAR HGB CONC 32.7 g/dL (33.0-36.5); MEAN CORPUSCULAR VOLUME 88.3 FL (78-98); MEAN PLATELET VOLUME 9.2 FL (7.4-10.4); MONOCYTES # (AUTO) 0.6 X10'3 (0-0.9); MONOCYTES % (AUTO) 7.8 % (2-12); NEUTROPHILS # (AUTO) 5.6 X10'3 (1.8-7.7); NEUTROPHILS % (AUTO) 77.9 % (42-75); PLATELET COUNT 159 X10'3 (140-440); RED BLOOD COUNT 3.13 X10'6 (4.20-5.60); RED CELL DISTRIBUTION WIDTH 18.2 % (11.5-14.5); WHITE BLOOD COUNT 7.2 X10'3 (4.5-11.0)
[2019-08-30] MEDS: ipratropium/albuterol 3ml nebule NEB SCH ×4 (06:59→19:26)
[2019-08-30 07:01] LABS: ALANINE AMINOTRANSFERASE 90 U/L (12-78); ALBUMIN 2.6 G/DL (3.4-5.0); ALBUMIN/GLOBULIN RATIO 0.8 (1.1-1.5); ALKALINE PHOSPHATASE 64 IU/L (46-116); ANION GAP 2 (8-16); ASPARTATE AMINO TRANSFERASE 39 U/L (10-37); BILIRUBIN,TOTAL 0.6 MG/DL (0.1-1.0); BLOOD UREA NITROGEN 60 MG/DL (7-18); BUN/CREATININE RATIO 45.1 (6.6-38.0); CALCIUM 8.5 MG/DL (8.5-10.1); CHLORIDE 102 MMOL/L (99-107); CREATININE 1.33 MG/DL (0.40-0.90); GLUCOSE 95 MG/DL (70-104); SODIUM 146 MMOL/L (135-145); TOTAL PROTEIN 5.9 G/DL (6.4-8.2); eGFR 38 ML/MIN
[2019-08-30] MEDS: predniSONE 20 mg tablet PO SCH (08:00)
[2019-08-30] MEDS: metoprolol tartrate 25mg tablet PO SCH ×2 (08:00→19:26)
[2019-08-30] MEDS: pregabalin 25mg capsule PO SCH ×3 (08:00→20:21)
[2019-08-30] MEDS: K and/or MAG REPLACEMENT MC SCH ×2 (08:00→20:00)
[2019-08-30] MEDS: heparin, porcine 5000 units/ml vial SQ SCH ×2 (08:00→19:26)
[2019-08-30] MEDS: nystatin 15 GM powder TP SCH ×3 (08:00→20:21)
[2019-08-30] MEDS: CefTRIAXone/D5W-Rocephin 1gm 50 ML IV SCH (08:00)
[2019-08-30 11:00] VITALS: BP 96/43
[2019-08-30] MEDS: insulin Lispro (HumaLOG) vial - multi-dose SQ SCH ×3 (13:43→22:10)
[2019-08-30 15:00] VITALS: BP 124/48
[2019-08-30] MEDS ORDERED: bisacodyl 10mg suppository rectal RC PRN (16:00)
--- NOTE | 2019-08-30 16:15 | NUR ---
Nutrition consult: Pt PO remains absent on pureed/thin liquids/renal diet 0% 7 days since admit. Also no BM since admit 8 days s/p fx repair. MYRNA spok.desmond MCQUEEN regarding routine bowel care and poor nutrition. RN reports MD ordered routine bowel care and suppository. RN also reports pt PO at least 75% meals this AM much improved and pt more alert. Given mild BLE +2 edema, mild weakness, and poor PO hx past 7 days pt qualifies for severe malnutrition at this time. MD notified. Not appropriate for ed this admit AOx2. Will continue to monitor. Recommendation: 1. Continue pureed, renal diet with thin liquid per ST recs; encourage PO intake 2. IF PO remains 0-25% 7-10d; consider nutrition support per MD 3. Routine bowel care 4. Weight per rx Addendum: 08/30/19 at [address] Amended: Links added.
--- NOTE | 2019-08-30 17:33 | NUR ---
Problems reprioritized. Patient report given, questions answered & plan of care reviewed with JACINTO Encinas. Patient transferred to ortho/neuro, stable at time of transfer
--- NOTE | 2019-08-30 17:41 | NUR ---
Patient in room PCU 3018. I have received report from Manisha and had the opportunity to ask questions and assume patient care. Obtained vital signs and did 2 RN skin check. Patient currently eating dinner. Will report off to NOC shift.
--- NOTE | 2019-08-30 17:45 | NUR ---
Upon assessment of the patient, it was noted to have a white, furry tongue. Patient does complain of oral discomfort. Page sent to Dr. Rush 1984S Just received patient from PCU, patient appears to have severe oral thrush. Can we have order for nystatin swish and swallow? Ce CASEY, ortho
[2019-08-30 18:00] VITALS: BP 121/45
--- NOTE | 2019-08-30 18:23 | NUR ---
Problems reprioritized. Patient report given, questions answered & plan of care reviewed with
--- NOTE | 2019-08-30 18:50 | NUR ---
Patient in room ORTHO 4021. I have received report from Ce CASEY and had the opportunity to ask questions and assume patient care.
[2019-08-30] MEDS: HYDROcodone/acetaminophen 5mg/325mg tablet PO PRN (19:05)
[2019-08-30] MEDS: docusate sod 100mg capsule PO SCH (19:25)
[2019-08-30] MEDS: aspirin 81mg tablet.DR PO SCH (20:21)
[2019-08-30] MEDS: atorvastatin 20mg tablet PO SCH (20:21)
[2019-08-30 22:00] VITALS: BP 110/43
[2019-08-30] MEDS: insulin glargine (Lantus) pen - multi-dose SQ SCH (22:08)
[2019-08-30] MEDS: HYDROcodone/acetaminophen 10/325mg tab PO PRN (23:48)
[2019-08-31] MEDS ORDERED: magnesium Cl slow-release 64mg tablet PO PRN (05:05)
[2019-08-31] MEDS ORDERED: magnesium 2GM in 50ml NS 50 ML IV PRN (05:05)
[2019-08-31] MEDS ORDERED: potassium Cl 20 mEq SR tablet PO PRN ×2 (05:05)
[2019-08-31] MEDS ORDERED: magnesium 4gm in 100ml NS 100 ML IV PRN (05:05)
[2019-08-31] MEDS ORDERED: potassium CL 10mEq/100ml bag 100 ML IV PRN (05:05)
[2019-08-31] MEDS: HYDROcodone/acetaminophen 10/325mg tab PO PRN (05:40)
[2019-08-31 06:00] VITALS: BP 110/62
[2019-08-31 06:22] LABS: BASOPHILS % (AUTO) 0.1 % (0-1); EOSINOPHILS # (AUTO) 0.1 X10'3 (0-0.9); EOSINOPHILS % (AUTO) 1.7 % (0-6); HEMATOCRIT 25.6 % (35.0-45.0); HEMOGLOBIN 8.6 g/dl (12.0-16.0); LYMPHOCYTES % (AUTO) 12.3 % (21-51); MEAN CORPUSCULAR HEMOGLOBIN 29.6 PG (27.0-31.0); MEAN CORPUSCULAR HGB CONC 33.7 g/dL (33.0-36.5); MEAN PLATELET VOLUME 9.7 FL (7.4-10.4); MONOCYTES # (AUTO) 0.6 X10'3 (0-0.9); MONOCYTES % (AUTO) 7.1 % (2-12); NEUTROPHILS # (AUTO) 6.6 X10'3 (1.8-7.7); NEUTROPHILS % (AUTO) 78.8 % (42-75); PLATELET COUNT 168 X10'3 (140-440); RED CELL DISTRIBUTION WIDTH 17.4 % (11.5-14.5); WHITE BLOOD COUNT 8.4 X10'3 (4.5-11.0)
[2019-08-31 06:23] LABS: ALANINE AMINOTRANSFERASE 67 U/L (12-78); ALBUMIN 2.5 G/DL (3.4-5.0); ALBUMIN/GLOBULIN RATIO 0.8 (1.1-1.5); ALKALINE PHOSPHATASE 71 IU/L (46-116); ANION GAP 1 (8-16); ASPARTATE AMINO TRANSFERASE 27 U/L (10-37); BILIRUBIN,TOTAL 0.5 MG/DL (0.1-1.0); BLOOD UREA NITROGEN 68 MG/DL (7-18); BUN/CREATININE RATIO 47.6 (6.6-38.0); CALCIUM 8.3 MG/DL (8.5-10.1); CHLORIDE 101 MMOL/L (99-107); CREATININE 1.43 MG/DL (0.40-0.90); GLUCOSE 93 MG/DL (70-104); MAGNESIUM 1.8 MG/DL (1.5-2.4); POTASSIUM 4.1 MMOL/L (3.5-5.1); SODIUM 140 MMOL/L (135-145); TOTAL CARBON DIOXIDE 38.1 MMOL/L (24-32); TOTAL PROTEIN 5.6 G/DL (6.4-8.2); eGFR 35 ML/MIN
--- NOTE | 2019-08-31 06:36 | NUR ---
REPORT TO EARLY SHIFT RN
[2019-08-31] MEDS: K and/or MAG REPLACEMENT MC SCH (07:07)
[2019-08-31] MEDS: ipratropium/albuterol 3ml nebule NEB SCH ×3 (07:31→15:00)
[2019-08-31] MEDS: pregabalin 25mg capsule PO SCH ×2 (08:43→13:16)
[2019-08-31] MEDS: docusate sod 100mg capsule PO SCH (08:44)
[2019-08-31] MEDS: predniSONE 20 mg tablet PO SCH (08:44)
[2019-08-31] MEDS: CefTRIAXone/D5W-Rocephin 1gm 50 ML IV SCH (08:46)
[2019-08-31] MEDS: metoprolol tartrate 25mg tablet PO SCH (08:47)
[2019-08-31] MEDS: insulin Lispro (HumaLOG) vial - multi-dose SQ SCH ×2 (08:51→13:14)
[2019-08-31] MEDS: nystatin 15 GM powder TP SCH ×2 (08:52→13:19)
[2019-08-31] MEDS: heparin, porcine 5000 units/ml vial SQ SCH (08:53)
[2019-08-31 10:00] VITALS: BP 117/52
[2019-08-31] MEDS: HYDROcodone/acetaminophen 5mg/325mg tablet PO PRN (14:48)
[2019-09-05] MEDS ORDERED: LORA10TA7 PO (15:17)
[2019-09-05] MEDS ORDERED: METO25TA6 PO (15:30)
[2019-09-05] MEDS ORDERED: DOCU-148 PO (17:26)
[2019-09-05] MEDS ORDERED: ALBU2.5V12 NEB (17:26)
[2019-09-05] MEDS ORDERED: NYST1000 PO (17:29)
[2019-09-06] MEDS ORDERED: nystatin 500,000 unit/5ML UD oral suspension PO SCH (21:00)
== END 2019-08-31 18:00 | DRG 480 ==
LOC: ER 18:48 → ED HOLD 22:28 → ORTHO 4S 23:28 → PCU 3S 08-24 19:37 → ORTHO 4S 08-30 17:55
PROVIDERS: ADMIT Hospitalist; ATTEND Hospitalist
PROC: 0QS706Z Reposition Left Upper Femur with Intramedullary Internal Fixation Device, Open Approach (ICD-10-PCS; principal; 2019-08-22)
DX: S72.145A Nondisplaced intertrochanteric fracture of left femur, initial encounter for closed fracture (principal); N17.0 Acute kidney failure with tubular necrosis; J96.00 Acute respiratory failure, unspecified whether with hypoxia or hypercapnia; N39.0 Urinary tract infection, site not specified; J44.1 Chronic obstructive pulmonary disease with (acute) exacerbation; L03.116 Cellulitis of left lower limb; I13.0 Hypertensive heart and chronic kidney disease with heart failure and stage 1 through stage 4 chronic kidney disease, or unspecified chronic kidney disease; I50.32 Chronic diastolic (congestive) heart failure; E87.3 Alkalosis; B96.20 Unspecified Escherichia coli [E. coli] as the cause of diseases classified elsewhere; N18.9 Chronic kidney disease, unspecified; I50.84 End stage heart failure; E11.22 Type 2 diabetes mellitus with diabetic chronic kidney disease; E78.5 Hyperlipidemia, unspecified; W07.XXXA Fall from chair, initial encounter; Y93.89 Activity, other specified; Y92.018 Other place in single-family (private) house as the place of occurrence of the external cause; W22.8XXA Striking against or struck by other objects, initial encounter; E66.01 Morbid (severe) obesity due to excess calories; I25.10 Atherosclerotic heart disease of native coronary artery without angina pectoris; I25.2 Old myocardial infarction
CPT/HCPCS: 36415; 36600; 70450; 71045; 72192; 73502; 74018; 76000; 76775; 76937; 80047; 80048; 80053; 81001; 82550; 82803; 82948; 83036; 83605; 83735; 83880; 84145; 85018; 85025; 85610; 85730; 86885; 86900; 86901; 87040; 87077; 87081; 87088; 87186; 92508; 92616; 93005; 94640; 94660; 94760; 97110; 97116; 97161; 97530; 99285; A4215; A7000; C1713; G0378; J0360; J0690; J0696; J1644; J1815; J1940; J2001; J2060; J2270; J2704; J2930; J3010; J3370; J3490; J7030; J7070; J7120; J7512